=== PATIENT | male | born 1970 | race Two or more races ===

== ENCOUNTER 2018-05-15 07:49 | Day surgery (SDC) | payer OTHER ==
[~2018-05-15] VITALS: Ht 180.3 cm; Wt 119.2 kg
[~2018-05-15 07:49] MED LIST: FURO40 PO; MIRALAX17 GM PO; NADO40 PO; SPIR50 PO
== END 2018-05-15 09:41 | disposition home or self-care (01) ==
LOC: ORSCSDS 07:49
PROVIDERS: Internal Medicine Gastroenterology
PROC: 0DJ08ZZ Inspection of Upper Intestinal Tract, Via Natural or Artificial Opening Endoscopic (ICD-10-PCS; principal; 2018-05-15 09:00)
DX: I85.00 Esophageal varices without bleeding (principal); K25.9 Gastric ulcer, unspecified as acute or chronic, without hemorrhage or perforation; K74.60 Unspecified cirrhosis of liver; K75.81 Nonalcoholic steatohepatitis (NASH); R18.8 Other ascites; E66.01 Morbid (severe) obesity due to excess calories; Z68.36 Body mass index [BMI] 36.0-36.9, adult; Z79.899 Other long term (current) drug therapy
CPT/HCPCS: J0330; J1980; J2405; J7120

== ENCOUNTER 2018-10-23 10:19 | Emergency (ER) | payer OTHER ==
[~2018-10-23] VITALS: Ht 177.8 cm; Wt 120.2 kg
[2018-10-23 11:37] LABS: BASOPHILS ABSOLUTE AUTO 0.11 K/mm3 (0.00-0.23); BASOPHILS PERCENT AUTO 1 % (0-2); EOSINOPHILS ABSOLUTE AUTO 0.37 K/mm3 (0.00-0.68); EOSINOPHILS PERCENT AUTO 2 % (0-6); Hematocrit 32.7 % (37.0-53.0); IMMATURE GRAN PERCENT AUTO 1 % (0-1); LYMPHOCYTES ABSOLUTE AUTO 2.36 K/mm3 (0.84-5.20); LYMPHOCYTES PERCENT AUTO 15 % (21-46); MONOCYTES ABSOLUTE AUTO 0.86 K/mm3 (0.16-1.47); MONOCYTES PERCENT AUTO 6 % (4-13); Mean Corpuscular HGB 32.8 pg (26.0-34.0); Mean Corpuscular HGB Conc 33.6 g/dL (31.5-36.5); Mean Corpuscular Volume 98 fL (80-100); Mean Platelet Volume 10.4 fL (9.1-12.4); NEUTROPHILS ABSOLUTE AUTO 11.79 K/mm3 (1.96-9.15); NEUTROPHILS PERCENT AUTO 76 % (41-73); Platelet Count 121 K/mm3 (150-400); RDW Coefficient Variation 14.9 % (11.7-14.2); Red Blood Cell Count 3.35 M/mm3 (4.30-5.90); White Blood Cell Count 15.59 K/mm3 (4.00-11.30)
[2018-10-23 11:57] LABS: Alanine Aminotransfer (ALT/SGP 52 U/L (12-78); Albumin, Blood 2.8 g/dL (3.4-5.0); Albumin/Globulin Ratio 0.7 (0.8-1.8); Alk Phos 87 U/L (50-136); Anion Gap 8 mmol/L (6-16); Aspartate Aminotrans (AST/SGOT 61 U/L (12-37); Bilirubin, Total 4.1 mg/dL (0.1-1.0); Blood Urea Nitrogen 45 mg/dL (8-24); Bun/Creatinine Ratio 38.8 (12.0-20.0); CO2, Blood 24 mmol/L (21-32); Calcium, Blood 8.5 mg/dL (8.5-10.1); Chloride, Blood 106 mmol/L (98-108); Creatinine, Blood 1.16 mg/dL (0.60-1.20); Globulin, Blood 4.1 g/dL (2.2-4.0); Glomerular Filtration Rate >60 (60-); Glucose, Blood 162 mg/dL (70-99); Potassium, Blood 4.6 mmol/L (3.5-5.5); Sodium, Blood 138 mmol/L (136-145); Total Protein, Blood 6.9 g/dL (6.4-8.2)
[2018-10-23 11:58] LABS: International Normalized Ratio 1.26; Prothrombin Time Results 13.1 Sec (9.7-11.5)
== END 2018-10-23 13:48 | disposition home or self-care (01) ==
LOC: ER 10:19
PROVIDERS: Emergency Medicine; Physician Assistant
DX: K92.2 Gastrointestinal hemorrhage, unspecified (principal); K75.81 Nonalcoholic steatohepatitis (NASH); I83.90 Asymptomatic varicose veins of unspecified lower extremity; Z88.0 Allergy status to penicillin; Z88.1 Allergy status to other antibiotic agents; Z79.899 Other long term (current) drug therapy
CPT/HCPCS: 36415; 80053; 85025; 85610; 86850; 86900; 86901; 93005; 93010

== ENCOUNTER 2018-11-15 01:25 | Inpatient (IN) | payer OTHER ==
[~2018-11-15] VITALS: Ht 177.8 cm; Wt 122.7 kg
[2018-11-15 02:14] LABS: Hemoglobin 7.3 g/dL (13.5-17.5); Mean Corpuscular HGB 30.9 pg (26.0-34.0); Mean Corpuscular HGB Conc 31.7 g/dL (31.5-36.5); Mean Corpuscular Volume 98 fL (80-100); Mean Platelet Volume 9.7 fL (9.1-12.4); NRBC ABSOLUTE 0.03 K/mm3 (0.00-0.02); NRBC Auto 0.1 /100 WBC (0.0-0.2); Platelet Count 267 K/mm3 (150-400); Red Blood Cell Count 2.36 M/mm3 (4.30-5.90); White Blood Cell Count 35.77 K/mm3 (4.00-11.30)
[2018-11-15 02:19] LABS: International Normalized Ratio 2.14; Prothrombin Time Results 21.2 Sec (9.7-11.5)
[2018-11-15 02:25] LABS: Calcium, Ionized (POC) 0.97 mmol/L (1.10-1.46); Chloride (POC) 98 mmol/L (98-108); Creatinine (POC) 1.7 mg/dL (0.8-1.3); Glucose (ISTAT POC) 202 mg/dL (70-99); Hemoglobin (POC) 7.1 g/dL (13.5-17.5); Potassium (POC) 4.2 mmol/L (3.5-5.5); Sodium (POC) 129 mmol/L (135-148); Total CO2 (POC) 16 mmol/L (21-32)
[2018-11-15 02:26] LABS: Albumin, Blood 1.9 g/dL (3.4-5.0); Albumin/Globulin Ratio 0.6 (0.8-1.8); Bilirubin, Total 1.8 mg/dL (0.1-1.0); Bun/Creatinine Ratio 24.2 (12.0-20.0); Calcium, Blood 6.8 mg/dL (8.5-10.1); Creatinine, Blood 1.57 mg/dL (0.60-1.20); Potassium, Blood 4.2 mmol/L (3.5-5.5); Total Protein, Blood 4.9 g/dL (6.4-8.2); Troponin I 0.015 ng/mL (0.000-0.040)
[2018-11-15 02:41] LABS: BAND PERCENT MAN 2 % (0-8); BASOPHILS PERCENT MAN 0 % (0-2); EOSINOPHILS ABSOLUTE MAN 0.35 K/mm3 (0.00-0.68); EOSINOPHILS PERCENT MAN 1 % (0-6); LYMPHOCYTES ABSOLUTE MAN 3.21 K/mm3 (0.84-5.20); LYMPHOCYTES PERCENT MAN 9 % (21-46); METAMYELOCYTE ABSOLUTE MAN 1.07 K/mm3 (0.00-0.00); METAMYELOCYTE PERCENT MAN 3 % (0-0); MONOCYTES ABSOLUTE MAN 2.14 K/mm3 (0.16-1.47); MONOCYTES PERCENT MAN 6 % (4-13); MYELOCYTE ABSOLUTE MAN 0.71 K/mm3 (0.00-0.00); MYELOCYTE PERCENT MAN 2 % (0-0); NEUTROPHILS ABSOLUTE MAN 28.25 K/mm3 (1.96-9.15); SEG NEUTROPHILS PERCENT MAN 77 % (41-73); TOTAL CELLS COUNTED 100
--- NOTE | 2018-11-15 05:13 | NUR ---
ADMIT RECEIVED FROM ER VIA GURNEY. AWAKE AND ALERT. ORIENTED AND COOPERATIVE. PT IS ABLE TO HELP WITH REPOSITIONING. DENIES C/O PAIN AT THIS TIME. C/O GENERAL WEAKNESS AND "JUST NOT FEELING WELL." DENIES NAUSEA. INCONTINENT OF LARGE AMOUNT OF LOOSE DARK MAROON STOOL. ABD SURGICAL WOUND NOTED- OLD DRSG IN PLACE WITH MODERATE AMOUNT OF SEROUS DRAINAGE. PICS TAKEN, WOUND CLEANED, AND REDRESSED. RIJ CENTRAL LINE PATENT. LEVOPHED INFUSING @ 5MCG/MIN UPON ARRIVAL. PRBC INFUSING PER ORDER. MONITOR SHOWS NSR-ST, RATE 90-100s. AFEBRILE. PT IS SLIGHTLY TACHYPNEIC, RATE 24-28. DENIES C/O SOB OR DYSPNEA. RA SATS STABLE. SEE ADMIT ASSESSMENT FOR FULL ASSESSMENT.
[2018-11-15 06:40] LABS: Hematocrit 22.3 % (37.0-53.0); Hemoglobin 7.2 g/dL (13.5-17.5); Mean Corpuscular HGB 31.3 pg (26.0-34.0); Mean Corpuscular HGB Conc 32.3 g/dL (31.5-36.5); Mean Corpuscular Volume 97 fL (80-100); Mean Platelet Volume 9.6 fL (9.1-12.4); Platelet Count 261 K/mm3 (150-400); RDW Coefficient Variation 16.6 % (11.7-14.2); RDW Standard Deviation 57.7 fL (35.1-46.3); White Blood Cell Count 39.86 K/mm3 (4.00-11.30)
[2018-11-15 06:50] LABS: Albumin, Blood 2.2 g/dL (3.4-5.0); Albumin/Globulin Ratio 0.8 (0.8-1.8); Bilirubin, Total 2.3 mg/dL (0.1-1.0); Bun/Creatinine Ratio 25.7 (12.0-20.0); Calcium, Blood 6.4 mg/dL (8.5-10.1); Creatinine, Blood 1.36 mg/dL (0.60-1.20); Globulin, Blood 2.7 g/dL (2.2-4.0); Potassium, Blood 4.5 mmol/L (3.5-5.5); Total Protein, Blood 4.9 g/dL (6.4-8.2)
--- NOTE | 2018-11-15 08:00 | NUR ---
INITIAL ASSESSMENT PATIENT LYING IN BED QUIETLY UPON ENTERING ROOM. MOTHER AT BEDSIDE. PATIENT ALERT AND ORIENTED X 4, AFEBRILE. PATIENT STATES THAT HE HAS INTERMITTENT, SHARP PAIN THAT COMES AND GOES IN R SIDE OF ABDOMEN. PATIENT STATES THAT PAIN IS MANAGEABLE AT THIS TIME. PATIENT HAS GENERALIZED WEAKNESS BUT ABLE TO MOVE ALL EXTREMITIES. PATIENT HELPS TO REPOSITION. PATIENT SATTING WELL ON RA. LUNGS CLEAR IN UPPER LOBES AND DIMINISHED IN LOWER LOBES. PATIENT IN ST, HR IN THE LOW 100S. BP STABLE. LEVOPHED INFUSING AT 3 MCG/ MINUTE AT BEGINNING OF SHIFT. LEVOPHED NOW ON STANDBY. PULSES STRONG. PATIENT HAS GENERAL 1+ EDEMA. ABDOMEN MODERATELY DISTENDED, SOFT, TENDER TO PALPATION, WITH TYMPANIC BS. PATIENT HAS BEEN HAVING LIQUID/ LOOSE, MAROON STOOLS. PATIENT NPO. PATIENT VOIDING SMALL AMOUNTS OF DARK ORANGE URINE INTO BEDSIDE URINAL. PATIENT HAS SCATTERED BRUISES T/O. DRESSING C/D/I TO MIDLINE ABDOMEN- S/P APPENDECTOMY. NS INFUSING AT 125 MLS/ HOUR. BED LOW, CALL LIGHT IN REACH. WILL CONTINUE TO MONITOR PATIENT FREQUENTLY THROUGHOUT SHIFT.
--- NOTE | 2018-11-15 10:34 | NUR ---
DR. DALEY NOTIFIED OF PATIENT'S HEMOGLOBIN OF 7.1. NO ORDERS AT THIS TIME.
[2018-11-15 11:03] LABS: Source, Urine Clean Catch
[2018-11-15 11:12] LABS: Appearance, Urine Clear (Clear); Bilirubin, Urine Neg (Neg); Blood, Urine Neg (Neg); Color, Urine Yellow (P-Yellow); Glucose Qualitative, Urine Neg (Neg); Ketones, Urine 1+ (Neg); Leukocyte Esterase, Urine 1+ (Neg); Nitrite, Urine Neg (Neg); Protein, Urine 1+ (Neg); Urobilinogen, Urine NORM (Normal)
[2018-11-15 11:24] LABS: Adenovirus Not Detected (NOT DETECT); Bordetella pertussis Not Detected (NOT DETECT); Chlamydophila pneumoniae Not Detected (NOT DETECT); Coronavirus 229E Not Detected (NOT DETECT); Coronavirus HKU1 Not Detected (NOT DETECT); Coronavirus NL63 Not Detected (NOT DETECT); Coronavirus OC43 Not Detected (NOT DETECT); Human Metapneumovirus Not Detected (NOT DETECT); Human Rhinovirus/Enterovirus Not Detected (NOT DETECT); Influenza A Not Detected (NOT DETECT); Influenza A/2009-H1 Not Detected (NOT DETECT); Influenza A/H1 Not Detected (NOT DETECT); Influenza A/H3 Not Detected (NOT DETECT); Influenza B Not Detected (NOT DETECT); Mycoplasma pneumoniae Not Detected (NOT DETECT); Parainfluenza Virus 1 Not Detected (NOT DETECT); Parainfluenza Virus 2 Not Detected (NOT DETECT); Parainfluenza Virus 3 Not Detected (NOT DETECT); Parainfluenza Virus 4 Not Detected (NOT DETECT); Respiratory Syncytial Virus Not Detected (NOT DETECT)
[2018-11-15 11:46] LABS: Bacteria Few /hpf; Red Blood Cells, Urine 0-2 /hpf (0-2); Squamous Epithelial Cells Few /hpf (Few)
--- NOTE | 2018-11-15 13:00 | NUR ---
PATIENT RESTING QUIETLY IN BED. NO COMPLAINTS AT THIS TIME. AFEBRILE. PATIENT REMAINS SATTING WELL ON RA. PATIENT IN SR TO ST, HR 90S TO LOW 100S. BP STABLE. PATIENT REMAINS NPO. RECTAL TUBE DRAINING LIQUID, MAROON STOOL. NS TKO. NO OTHER ACUTE CHANGES TO NOTE ON AT THIS TIME. WILL CONITNUE TO MONITOR.
--- NOTE | 2018-11-15 14:23 | NUR ---
Per admit trigger, I met with Tre to discuss AD. He is very weak, but was open for this conversation. I gently explained AD purpose and benefits. He is very interested in completing this document this hospitalization. He would like his mom to be his MPOA. I left the information packet on bedside table at his request. He plans of completing this document with his mom when she arrives this afternoon. Advised I will be available to assist in completion.
--- NOTE | 2018-11-15 16:40 | NUR ---
PATIENT RESTING QUIETLY IN BED. AFEBRILE. NO COMPLAINTS OF PAIN. VSS. MOTHER AT BEDSIDE. NO ACUTE CHANGES TO NOTE ON AT THIS TIME. WILL CONTINUE TO MONITOR.
--- NOTE | 2018-11-15 18:53 | NUR ---
SHIFT SUMMARY PATIENT REMAINED ALERT AND ORIENTED X 4, AFEBRILE. PATIENT HAS GENERALIZED WEAKNESS. PATIENT DID NOT WANT TO MOVE AROUND MUCH IN BED TODAY EVEN WITH ENCOURAGEMENT. PATIENT COMPLAINED OF INTERMITTENT, SHARP PAIN TO RIGHT ABDOMEN. FENTANYL ORDER RECEIVED TODAY. PATIENT GIVEN FENTANYL A COUPLE OF TIMES REQUESTED FOR THE RIGHT ABD PAIN. PATIENT REPORTED RELIEF WITH PRN PAIN MEDICATION. PATIENT REMAINED SATTING WELL ON RA. PATIENT REMAINED IN SR TO ST/ HR 90S TO LOW 100S. BP REMAINED STABLE. LEVOPHED TURNED OFF THIS AM, EARLY IN SHIFT. NO CHANGE TO ABDOMEN. RECTAL TUBE PUT OUT 100 CC LIQUID, MAROON STOOL. PATIENT HAS REMAINED NPO. PATIENT REMAINS VOIDING SMALL AMOUNTS AT A TIME OF DARK ORANGE COLORED URINE. NO CHANGE TO SKIN. NS INFUSING TKO, OCTREOTIDE AT 25 MLS/ HOUR. RESP. PANEL SENT. UA SENT. 2 G CALCIUM GLUCONATE GIVEN THIS AM FOR CALCIUM LEVEL OF 6.4. PATIENT REFUSED BED BATH THIS SHIFT. MOTHER, MARIO, HAS BEEN IN ROOM MOST OF THE DAY. BED LOW, CALL LIGHT IN REACH. PATIENT HAS NO COMPLAINTS AT THIS TIME. REPORT WILL BE GIVEN TO ONCOMING VEIN PUMPER NURSE SHORTLY.
--- NOTE | 2018-11-15 19:15 | NUR ---
ASSUMED CARE ASSUMED CARE OF PATIENT. AWAKE AND ALERT. ORIENTED X 3. PT IS ABLE TO ASSIST WITH REPOSITIONING. MONITOR SHOWS ST, RATE 100-105. BP STABLE. RA SATS 98%. RESPIRATIONS EVEN AND UNLABORED. SHALLOW RESPIRATIONS NOTED. PT ENCOURAGED TO COUGH AND DEEP BREATHE FREQUENTLY. RESPIRATIONS SLIGHTLY TACHYPNEIC AT TIMES. MIDLINE ABD DRSG INTACT WITH SMALL AMOUNT OF SEROUS DRAINAGE. SMALL INCISION NOTED TO RIGHT OF MIDLINE INCISION WITH SUTURE INTACT. DENIES NAUSEA. NPO FOR NOW. RECTAL TUBE IN PLACE WITH LIQUID DARK MAROON STOOL. PT C/O RUQ PAIN WITH MOVEMENT AND DEEP BREATHING. DENIES NEED FOR PAIN MED AT THIS TIME. SANDOSTATIN GTT INFUSING @ 50MCG/HR PER ORDER. NS TKO. VOIDING SMALL AMOUNTS OF DARK ORANGE URINE FREQUENTLY. SEE SHIFT ASSESSMENT FOR FULL ASSESSMENT.
[2018-11-16 05:15] LABS: BASOPHILS ABSOLUTE AUTO 0.14 K/mm3 (0.00-0.23); BASOPHILS PERCENT AUTO 0 % (0-2); EOSINOPHILS ABSOLUTE AUTO 0.36 K/mm3 (0.00-0.68); EOSINOPHILS PERCENT AUTO 1 % (0-6); Hematocrit 21.4 % (37.0-53.0); IMMATURE GRAN ABSOLUTE AUTO 0.97 K/mm3 (0.00-0.10); IMMATURE GRAN PERCENT AUTO 3 % (0-1); LYMPHOCYTES ABSOLUTE AUTO 3.52 K/mm3 (0.84-5.20); LYMPHOCYTES PERCENT AUTO 11 % (21-46); MONOCYTES ABSOLUTE AUTO 2.18 K/mm3 (0.16-1.47); MONOCYTES PERCENT AUTO 7 % (4-13); Mean Corpuscular HGB Conc 32.7 g/dL (31.5-36.5); Mean Corpuscular Volume 98 fL (80-100); Mean Platelet Volume 9.5 fL (9.1-12.4); NEUTROPHILS ABSOLUTE AUTO 24.13 K/mm3 (1.96-9.15); NEUTROPHILS PERCENT AUTO 77 % (41-73); Platelet Count 163 K/mm3 (150-400); RDW Coefficient Variation 17.2 % (11.7-14.2); RDW Standard Deviation 58.8 fL (35.1-46.3); Red Blood Cell Count 2.19 M/mm3 (4.30-5.90)
[2018-11-16 05:35] LABS: Albumin, Blood 2.3 g/dL (3.4-5.0); Albumin/Globulin Ratio 0.8 (0.8-1.8); Bilirubin, Total 2.9 mg/dL (0.1-1.0); Calcium, Blood 7.3 mg/dL (8.5-10.1); Creatinine, Blood 1.4 mg/dL (0.60-1.20); Globulin, Blood 2.9 g/dL (2.2-4.0); Magnesium, Blood 2.3 mg/dL (1.6-2.4); Phosphorus, Blood 2.3 mg/dL (2.5-4.9); Potassium, Blood 4.9 mmol/L (3.5-5.5); Total Protein, Blood 5.2 g/dL (6.4-8.2)
--- NOTE | 2018-11-16 06:10 | NUR ---
SHIFT SUMMARY NO ACUTE CHANGES DURING NOC. SLEPT INTERMITTENTLY. MEDICATED WITH FENTANYL 50MCG IV X 2 DOSES DURING NOC FOR C/O 3-6/10 RUQ PAIN WITH GOOD RELIEF. DENIES C/O NAUSEA. NPO. ABD DRSG D/I. WET TO DRY DRSG CHANGES TO START THIS AM. VSS. MONITOR SHOWS SR-ST, RATE 90-100s. AFEBRILE. REMAINS ON RA- SATS 96-98%. VOIDING SMALL AMOUNTS OF ORANGE URINE. RECTAL TUBE WITH 300CC LIQUID DARK MAROON STOOL. ALSO WITH TWO LARGE LEAKS OF STOOL T/O NOC. WILL REPORT TO DAY SHIFT RN WHEN AVAILABLE.
--- NOTE | 2018-11-16 08:11 | NUR ---
ASSUMED CARE ASSUMED CARE OF PT AT 0700. REPORT RECEIVED FROM CHIP GONSALVES. PT SLEEPING, AROUSES EASILY TO VERBAL STIMULUS, ORIENTED X4 WHEN AWAKE. PT PLEASANT AND COOPERATIVE WITH CARE. PT APPEARS UNCOMFORTABLE, SOMEWHAT TACHYPNEIC, SHALLOW BREATHING NOTED. MONITOR SHOWS SINUS RHYTHM WITH HR 90'S, SBP 90'S, SPO2 95-96% ON ROOM AIR. PT REPORTING RUQ PAIN WITH DEEP BREATHING - MED c FENTANYL PER EMAR. PT INSTRUCTED ON IMPORTANCE OF PAIN MANAGEMENT, DEEP BREATHING, COUGHING, TURNING TO PREVENT PNEUMONIA, VERBALIZES UNDERSTANDING. MIDLINE ABDOMINAL DRESSING TAKEN DOWN - SURGICAL SITE APPEARS BRIGHT PINK WITHE SOME YELLOW, MODERATE AMT OF CLEAR YELLOW LIQUID DRAINAGE ON PREVIOUS DRESSING. SWAB OBTAINED AND SENT FOR CULTURE. WET TO DRY DRESSING PLACED PER PT, PREVIOUS WOUND CARE ORDERS. ABDOMEN MODERATELY DISTENDED, BOWEL TONES HYPOACTIVE T/O. PT HAS RECTAL TUBE IN PLACE DRAINING MAROON LIQUID STOOL TO GRAVITY. PT VOIDING DARK YELLOW/JUDY URINE PER URINAL. PT HAS 20G IV TO RFA, SALINE LOCKED. CL IN PLACE TO RIJ WITH NS TKO, SANDOSTATIN 25ML/HR, AND ABX. PT USING CALL LIGHT APPROPRIATELY FOR NEEDS. WILL CONTINUE TO MONITOR PT CLOSELY.
--- NOTE | 2018-11-16 09:26 | NUR ---
DR. DAV DEMARCO ROUNDED ON PT. PLAN TO MONITOR SERIAL H&H'S. OTHERWISE CONTINUE WITH CURRENT PLAN OF CARE. DISCUSSED PLAN WITH PT AND PT'S MOTHER AT BEDSIDE.
--- NOTE | 2018-11-16 10:07 | NUR ---
DR. EDI DALEY ROUNDED ON PT. PLAN TO ADVANCE DIET TOLERATED, STARTING WITH CLEAR LIQUIDS. CONTINUE SANDOSTATIN GTT OVER THE NEXT 24 HOURS. PLAN TO INCREASE PT ACTIVITY TOLERATED. CONTINUE TO MONITOR LABS. DISCUSSED PLAN OF CARE WITH PT AND PT'S MOTHER AT BEDSIDE.
--- NOTE | 2018-11-16 11:57 | NUR ---
RE-ASSESSMENT PT RESTING IN BED AT THIS TIME. CONTINUES TO COMPLAIN OF RUQ PAIN, ESPECIALLY WITH DEEP INSPIRATION. MED PER EMAR WITH GOOD RELIEF OF PAIN. VITALS CONTINUE TO BE STABLE, SBP IMPROVED SINCE THIS MORNING. RECTAL TUBE HAS HAD MINIMAL OUTPUT THIS MORNING. MIDLINE WET TO DRY DRESSING INTACT WITHOUT SIGNIFICANT DRAINAGE AT THIS TIME. PT TOLERATING CLEAR LIQUIDS WITHOUT NAUSEA, VOMITING. CONTINUES TO VOID DARK YELLOW/JUDY TO URINAL. PT SHIFTING POSITION INDEPENDENTLY AT THIS TIME. PT'S MOTHER AT BEDSIDE ASSISTING WITH CARE. PT USING CALL LIGHT FOR NEEDS. WILL CONTINUE TO MONITOR.
[2018-11-16 15:21] LABS: Hematocrit 20.9 % (37.0-53.0); Hemoglobin 6.8 g/dL (13.5-17.5)
--- NOTE | 2018-11-16 17:56 | NUR ---
SHIFT SUMMARY PT RECEIVING 1 UNIT PRBC AT THIS TIME FOR HGB 6.8. VITALS HAVE BEEN STABLE T/O SHIFT WITH NO S/SX OF ACTIVE BLEEDING. RECTAL TUBE WITH SCANT AMT DARK BROWN/MAROON LIQUID OUTPUT. NO N/V THIS SHIFT, PT TOLERATING FULL LIQUID DIET WELL AT THIS TIME. SANDOSTATIN GTT CONTINUES PER ORDERS. ABDOMINAL WET TO DRY DRESSING REMAINS INTACT. PT TURNING SELF IN BED WITH ENCOURAGEMENT. PT'S MOTHER AT BEDSIDE T/O SHIFT ASSISTING WITH CARE. WILL CONTINUE TO MONITOR PT AND GIVE HANDOFF REPORT TO ONCOMING RN WHEN AVAILABLE.
--- NOTE | 2018-11-16 21:19 | NUR ---
ASSUMING CARE RECEIVED PT REPORT FROM CHIP BENÍTEZ. PT IS ALERT AND ORIENTED AT THE TIME OF SHIFT REPORT. PT IS ADMITTED DUE TO SHOCK POST APPENDECTOMY PROCEDURE. PT IS ON ROOM AIR WITH SPO2 IN THE MID TO HIGH 90'S. PT HR IS IN THE 90-100 RANGE AND APPEARS SINUS. PT BP IS IN THE 90'S TO LOW 100'S. PT IS REPORTING SOME RIGHT UPPER QUADRANT ABDOMINAL PAIN. PT REPORTS THAT IT IS INCREASED WITH DEEP INSPIRATION. PT DENIES NEED FOR PAIN MEDICATIONS AT THIS TIME. PT HAS MID LINE ABDOMINAL INSCISION WITH DRESSING IN PLACE. DRESSING CHANGE PERFORMED AT THE TIME OF SHIFT ASSESSMENT. PT HAS WET TO DRY GAUZE AND ABD PAD IN PLACE, SOME SEROUS DRAINAGE NOTED FROM SITE. PT DENIES ANY PAIN OF SURGICAL SITE. PT IS ABLE TO REPOSITION SELF WITH ENCOURAGEMENT. PT HAS RECETAL TUBE IN [place]. RECTAL TUBE DRAINAGE APPEARS TO BE DARK BLACKISH BROWN AT THIS TIME. MINIMAL OUTPUT NOTED AT THIS TIME. PT IS RECEIVING SANDOSTATIN AT 25ML/HR AND NS AT TKO. PT IS RECEIVING SODIUM PHOS AT THE TIME OF SHIFT REPORT THAT COMPLETED SHORTLY AFTER CHANGE OF SHIFT. ASSUMING CARE OF PT AT THE TIME OF SHIFT REPORT. WILL CONTINUE TO MONITOR PT.
[2018-11-17 03:40] LABS: BASOPHILS PERCENT AUTO 0 % (0-2); EOSINOPHILS ABSOLUTE AUTO 0.44 K/mm3 (0.00-0.68); EOSINOPHILS PERCENT AUTO 2 % (0-6); Hematocrit 22.5 % (37.0-53.0); Hemoglobin 7.3 g/dL (13.5-17.5); IMMATURE GRAN ABSOLUTE AUTO 0.91 K/mm3 (0.00-0.10); IMMATURE GRAN PERCENT AUTO 4 % (0-1); LYMPHOCYTES PERCENT AUTO 8 % (21-46); MONOCYTES ABSOLUTE AUTO 1.71 K/mm3 (0.16-1.47); MONOCYTES PERCENT AUTO 7 % (4-13); Mean Corpuscular HGB 31.9 pg (26.0-34.0); Mean Corpuscular HGB Conc 32.4 g/dL (31.5-36.5); Mean Corpuscular Volume 98 fL (80-100); Mean Platelet Volume 9.4 fL (9.1-12.4); NEUTROPHILS ABSOLUTE AUTO 19.77 K/mm3 (1.96-9.15); NEUTROPHILS PERCENT AUTO 80 % (41-73); Platelet Count 126 K/mm3 (150-400); RDW Coefficient Variation 17.8 % (11.7-14.2); RDW Standard Deviation 58.9 fL (35.1-46.3); Red Blood Cell Count 2.29 M/mm3 (4.30-5.90); White Blood Cell Count 24.83 K/mm3 (4.00-11.30)
[2018-11-17 03:58] LABS: Alanine Aminotransfer (ALT/SGP 30 U/L (12-78); Albumin, Blood 2.2 g/dL (3.4-5.0); Albumin/Globulin Ratio 0.7 (0.8-1.8); Alk Phos 56 U/L (50-136); Anion Gap 9 mmol/L (6-16); Aspartate Aminotrans (AST/SGOT 47 U/L (12-37); Bilirubin, Total 3.5 mg/dL (0.1-1.0); Blood Urea Nitrogen 42 mg/dL (8-24); Bun/Creatinine Ratio 33.9 (12.0-20.0); CO2, Blood 19 mmol/L (21-32); Chloride, Blood 107 mmol/L (98-108); Creatinine, Blood 1.24 mg/dL (0.60-1.20); Glomerular Filtration Rate >60 (60-); Glucose, Blood 179 mg/dL (70-99); Magnesium, Blood 2.2 mg/dL (1.6-2.4); Phosphorus, Blood 2.5 mg/dL (2.5-4.9); Potassium, Blood 4.4 mmol/L (3.5-5.5); Sodium, Blood 135 mmol/L (136-145); Total Protein, Blood 5.2 g/dL (6.4-8.2)
--- NOTE | 2018-11-17 05:41 | NUR ---
SHIFT SUMMARY NOTE PT AHS REMAINED ALERT AND ORIENTED THROUGH THE NIGHT WHILE AWAKE. PT HAS SLEPT THROUGH MOST OF THE NIGHT. PT HAS BEEN ABLE TO USE CALL LIGHT APPROPRIATELY AND IS ABLE TO MAKE NEEDS KNOWN. PT WAS ENCOURAGED TO TURN SELF THROUGH THE NIGHT AND WAS ASSISTED WITH PILLOWS. PT ABLE TODO MOST OF THE WORK OF TURNING. PT CONTINUES TO HAVE OCTREOTIDE GTT AT 25ML/HR AND NS AT TKO. PT CONTINUES TO HAVE [facility]. DRESSING HAS SOME CLEAR SEROUS DRAINAGE NOTED BUT IS OTHERWISE INTACT. PT CONTIUES TO HAVE RECTAL TUBE IN PLACE. PT HAD APPROX 200ML OF LIQUID STOOL OUTPUT. PT STOOL IS DARK BROWN/MAROON COLORED. PT HAS USED THE URINAL THROUGH THE NIGHT WITHOUT ASSISTANCE. PT HAS HAD FREQUENT SMALL VOIDS. PT URINE IS DARK JUYD IN COLOR. PT HR AND BP HAVE REMAINED STABLE THROUGH THE NIGHT. WILL REPORT OFF TO ONCOMING DAY SHIFT NURSE.
--- NOTE | 2018-11-17 08:00 | NUR ---
ASSUMED CARE ASSUMED CARE OF PT AT 0700. REPORT RECEIVED FROM CHIP JEAN-BAPTISTE. PT SLEEPING, AROUSES EASILY TO VERBAL, ORIENTED, PLEASANT AND COOPERATIVE WITH CARE WHEN AWAKE. MONITOR SHOWS SINUS RHYTHM/SINUS TACH WITH HR 90-100, BP STABLE, SPO2 >94% ON ROOM AIR. PT DENIES NAUSEA, VOMITING, HEADACHE, DYSPNEA. PT HAS RECTAL TUBE IN PLACE DRAINING DARK GREEN LIQUID STOOL TO GRAVITY. PT CONTINUES TO COMPLAIN OF RUQ PAIN - MED c FENTANYL PER EMAR WITH GOOD RELIEF OF PAIN. MIDLINE ABDOMINAL DRESSING CHANGED - PREVIOUS DRESSING SATURATED WITH SEROSANGUINOUS DRAINAGE. CL CONTINUES TO RIJ WITH SANDOSTATIN GTT AND NS TKO c ABX. CONTINUE TO ENCOURAGE ACTIVITY TOLERATED, DEEP BREATHING AND COUGHING.
--- NOTE | 2018-11-17 09:00 | NUR ---
DR. DAV DEMARCO ROUNDED ON PT. PLANS TO CONTINUE SANDOSTATIN GTT FOR AN ADDITIONAL 24 HRS, CONTINUE TO MONITOR PT IN ICU. PT COMPLAINING OF COUGH AND SORE THROAT - ORDER RECEIVED FOR CEPACOL LOZENGES.
--- NOTE | 2018-11-17 10:51 | NUR ---
DR. EDI BARBER ROUNDED ON PT. CONCERNED WITH HOW TIRED PT IS, COMPLAINING OF COUGH AND SORE THROAT - PLANS TO REPEAT FLU SWAB. OTHERWISE CONTINUE WITH PLAN OF CARE, AGREES WITH TRANSFER TO PCU STATUS.
[2018-11-17 11:49] LABS: Influenza A Positive (NEGATIVE); Influenza B Negative (NEGATIVE)
--- NOTE | 2018-11-17 12:41 | NUR ---
FLU/PCU TRANSFER FLU SWAB CAME BACK POSITIVE. ISOLATION INITIATED. REPORT GIVEN TO PERSONAL INSURANCE ADVISOR TO ASSUME CARE OF PT.
--- NOTE | 2018-11-17 18:03 | NUR ---
SHIFT SUMMARY PT ARRIVED FROM ICU AROUND 1300. MOM AT BEDSIDE. DENIED PAIN. DRESSING SATURATED, SO NEW DRESSING APPLIED. RECTAL TUBE PATENT AND DRAINING. R IJ OCTREOTIDE DRIP RUNNING. DECLINED TO GET UP AFTER ARRIVING ON OUR FLOOR. USES URINAL IN BED. GOOD APPETTITE. WCTM
[2018-11-18 05:32] LABS: BASOPHILS ABSOLUTE AUTO 0.04 K/mm3 (0.00-0.23); BASOPHILS PERCENT AUTO 0 % (0-2); EOSINOPHILS ABSOLUTE AUTO 0.17 K/mm3 (0.00-0.68); EOSINOPHILS PERCENT AUTO 2 % (0-6); Hematocrit 19.4 % (37.0-53.0); Hemoglobin 6.2 g/dL (13.5-17.5); IMMATURE GRAN ABSOLUTE AUTO 0.35 K/mm3 (0.00-0.10); IMMATURE GRAN PERCENT AUTO 3 % (0-1); LYMPHOCYTES PERCENT AUTO 11 % (21-46); MONOCYTES ABSOLUTE AUTO 1.48 K/mm3 (0.16-1.47); MONOCYTES PERCENT AUTO 14 % (4-13); Mean Corpuscular Volume 100 fL (80-100); Mean Platelet Volume 10.3 fL (9.1-12.4); NEUTROPHILS ABSOLUTE AUTO 7.54 K/mm3 (1.96-9.15); NEUTROPHILS PERCENT AUTO 70 % (41-73); NRBC ABSOLUTE 0.02 K/mm3 (0.00-0.02); NRBC Auto 0.2 /100 WBC (0.0-0.2); Platelet Count 73 K/mm3 (150-400); RDW Coefficient Variation 18.1 % (11.7-14.2); RDW Standard Deviation 60.8 fL (35.1-46.3); Red Blood Cell Count 1.94 M/mm3 (4.30-5.90); White Blood Cell Count 10.78 K/mm3 (4.00-11.30)
[2018-11-18 05:48] LABS: Alanine Aminotransfer (ALT/SGP 30 U/L (12-78); Albumin, Blood 1.9 g/dL (3.4-5.0); Albumin/Globulin Ratio 0.6 (0.8-1.8); Alk Phos 53 U/L (50-136); Anion Gap 5 mmol/L (6-16); Aspartate Aminotrans (AST/SGOT 58 U/L (12-37); Bilirubin, Total 1.9 mg/dL (0.1-1.0); Blood Urea Nitrogen 30 mg/dL (8-24); CO2, Blood 20 mmol/L (21-32); Calcium, Blood 6.5 mg/dL (8.5-10.1); Chloride, Blood 109 mmol/L (98-108); Creatinine, Blood 1.07 mg/dL (0.60-1.20); Globulin, Blood 3.1 g/dL (2.2-4.0); Glomerular Filtration Rate >60 (60-); Glucose, Blood 162 mg/dL (70-99); Potassium, Blood 4.2 mmol/L (3.5-5.5); Sodium, Blood 134 mmol/L (136-145)
--- NOTE | 2018-11-18 06:11 | NUR ---
PT HAD NO ACUTE CHANGES T/O NIGHT; VSS. SATS >90% ON RA, LUNGS DIM, COUGH MORE PROD THIS AM. SURG DRESSING CHANGED X1 R/T SATURATION, INCISION WNL, SITE DRAINING CLEAR SEROUS FLUID. PT DENIED PAIN/N/V, IS [place] REG PO. RECTAL TUBE DRAINING GREEN LIQ STOOL, PT VOIDING URINE W/O DIFFICULTY. OCTREOTIDE GTT CONT PER ORDERS. PT ASSISTING W/REPOSITIONING IN BED, IS USING CALL LIGHT FOR ASSISTANCE, WILL CONT TO MONITOR UNTIL REP GIVEN TO ONCOMING RN.
--- NOTE | 2018-11-18 06:26 | NUR ---
H&H: PT AM LABS REVIEWED SHOWING DROP IN H&H DOWN FROM 7.3/22.5 TO 6.2/19.4. CALL PLACED TO HOSPITALIST, NEW ORDER TO TRANSFUSE 1 UNIT PRBC. SANITATION TANK WASHER NOTIFIED.
--- NOTE | 2018-11-18 14:26 | NUR ---
NOTE PT RESTING QUIETLY. SR. VSS. PT TOLERATED PRBC X1 WITH NO DIFFICULTIES. LUNSG DECREASED T/O. NO COUGH. ENCOURAGED TO COUGH AND DEEP BREATH. AP REG/REG WITH MURMUR. BP STABLE. PT ABD SOFT, ROUND POSITIVE FLUID WAVE. NO DRAINAGE FROM MIDLINE YET. PT HAS REFUSED TO HAVE DRESSING CHANGED UNTIL IT LEAKS THROUGH. PT DENIED PAIN OR ABD DISCOMFORT. TALKED ABOUT INCREASING PROTEIN INTAKE FOR WOUND HEALING AND SERUM ALBUMIN. PT HAS REFUSED TO TURN FOR SKIN PROTECTION. HE IS COMFORTABLE STAYING ON HIS RIGHT SIDE. RIGHT IJ C/L PATENT. DR DALEY WANTS THE C/L OUT. TALKED WITH ICU TO ARRANGE A POWER GLIDE PLACEMENT FOR ANTIBIOTIC TREATMENT. VOIDING PER URINAL. URINE IS DARK ORANGISH IN COLOR. CONTINUE POT.
--- NOTE | 2018-11-18 18:14 | NUR ---
EVENING NOTE RESTING QUIETLY. PT FINALLY AGREED TO TURN ONTO HIS LEFT SIDE. VSS. SR ON MONITOR. MOTHER AT BEDSIDE. PT REFUSED DINNER BECAUSE HE WANTS TO SLEEP. PT HAS DECLINED NEED FOR PAIN MEDICATIONS TODAY. ABD DRESSING CD&I. PT REFUSED DRESSING CHANGES TODAY. ORDERED BID. HE STATED STAFF CAN CHANGE IT WHEN IT'S WET. PEEKED UNDER THE EDGE. WOUND LOOKS CLEAN AND DRY. LAP SITES CHEPE. EDGES WELL APPROXIMATED. PT REFUSED TO HAVE RECTAL TUBE OUT OR GET OOB BECAUSE HE SAYS HE'S TOO WEAK RIGHT NOW. OFFERED TO HELP PT GET OOB TO CHAIR. YESTERDAY HE TRIED TO STAND WITH PHYSICAL THERAPY AND HE ALMOST PASSED OUT. PT CONCERNED ABOUT THAT HAPPENING AGAIN. RIGHT NECK C/L SITE CD&I. NO SWELLING OR DRAINAGE NOTED. VSS. CONTINUE POT.
--- NOTE | 2018-11-19 05:06 | NUR ---
PROVIDER CONTACTED NO ORDER NOTED FOR VTE PROPHYLAXIS. DR GRIFFIN CONTACTED AND ORDERS RECEIVED FOR SCD'S TO BLE'S.
--- NOTE | 2018-11-19 05:52 | NUR ---
SHIFT SUMMARY- PT HAS REMAINED AOX4 THROUGHOUT SHIFT. VSS. PLEASANT AND COOPERATIVE WITH CARE. ABDOMINAL DRESSING CHANGED TWO TIMES THROUGHOUT THE NIGHT DUE TO SATURATION WITH CLEAR DRAINAGE. PT REFUSING BED CHANGE WHEN OFFERED, BUT DID ALLOW CHANGE OF GOWN. PT NOT WANTING TO TURN- EDUCATED ON PRESSURE ULCER PREVENTION AND SKIN INTEGRITY. SCD'S IN PLACE TO BLE'S FOR VTE PROPHYLAXIS AND PT TOLERATING WELL. CENTRAL LINE SITE TO R NECK HAS CLEAR TEGADERM WITH SCANT AMOUNT RED DRAINAGE NOTED- NO BRUISING OR SWELLING- PT DENIES PAIN TO SITE. RECTAL TUBE REMAINS IN PLACE AND CONTINUES TO DRAIN GREEN, LIQUID STOOL TO GRAVITY. PT HAS DENIED PAIN THROUGHOUT THE NIGHT. NO OTHER CHANGES NOTED FROM INITIAL ASSESSMENT. WILL CONTINUE TO MONITOR AND REPORT TO ONCOMING RN. BED IN LOW POSITION, CALL LIGHT IN REACH.
[2018-11-19 08:57] LABS: BASOPHILS ABSOLUTE AUTO 0.05 K/mm3 (0.00-0.23); BASOPHILS PERCENT AUTO 0 % (0-2); EOSINOPHILS PERCENT AUTO 3 % (0-6); Hematocrit 22.9 % (37.0-53.0); Hemoglobin 7.3 g/dL (13.5-17.5); IMMATURE GRAN PERCENT AUTO 2 % (0-1); LYMPHOCYTES ABSOLUTE AUTO 1.44 K/mm3 (0.84-5.20); LYMPHOCYTES PERCENT AUTO 13 % (21-46); MONOCYTES ABSOLUTE AUTO 1.44 K/mm3 (0.16-1.47); MONOCYTES PERCENT AUTO 13 % (4-13); Mean Corpuscular HGB 32.3 pg (26.0-34.0); Mean Corpuscular HGB Conc 31.9 g/dL (31.5-36.5); Mean Corpuscular Volume 101 fL (80-100); Mean Platelet Volume 10.5 fL (9.1-12.4); NEUTROPHILS PERCENT AUTO 70 % (41-73); Platelet Count 67 K/mm3 (150-400); RDW Coefficient Variation 18.2 % (11.7-14.2); RDW Standard Deviation 60.9 fL (35.1-46.3); Red Blood Cell Count 2.26 M/mm3 (4.30-5.90); White Blood Cell Count 11.23 K/mm3 (4.00-11.30)
--- NOTE | 2018-11-19 17:23 | NUR ---
SHIFT SUMMARY PT RESTING IN BED THROUGHOUT THE DAY. VSS. ALERT AND ORIENTED X3. PT C/O PAIN WITH RECTAL TUBE IN, RECTAL TUBE NOT PRODUCING MUCH. PT AGREEABLE FOR RECTAL TUBE REMOVAL. RECTAL TUBE REMOVED, PT TOLERATED WELL. PT INCONTINENT OF STOOL THIS AM, THEN UP TO BATHROOM WITH OT. LUNG SOUNDS CLEAR, DIMINISHED BASES. NSR RATE 90s ON TELE. SCDs IN PLACE. LEFT POWERGLIDE FLUSHING WELL. FAMILY AT BEDSIDE THIS AFTERNOON. WILL CONTINUE TO MONITOR.
--- NOTE | 2018-11-20 | NUR ---
POWERGLIDE REMOVAL- SWELLING NOTED TO LEFT UPPER ARM ABOVE POWERGLIDE. NO REDNESS OR WARMTH TO SITE, PT DENIES PAIN BUT REPORTS THAT HIS ARM "FEELS TIGHT IN THAT AREA". POWERGLIDE ASSESSED BY CHIP STALLWORTH AND SUGGESTION MADE FOR SITE ROTATION FOR SAFETY. SECONDARY SITE TO BE OBTAINED. WILL CONTINUE TO MONITOR FOR CHANGES.
[2018-11-20 06:13] LABS: Hematocrit 22.8 % (37.0-53.0); Hemoglobin 7.3 g/dL (13.5-17.5); Mean Corpuscular HGB 32.6 pg (26.0-34.0); Mean Corpuscular Volume 102 fL (80-100); Mean Platelet Volume 10.1 fL (9.1-12.4); Platelet Count 63 K/mm3 (150-400); RDW Coefficient Variation 18.3 % (11.7-14.2); RDW Standard Deviation 64.4 fL (35.1-46.3); Red Blood Cell Count 2.24 M/mm3 (4.30-5.90); White Blood Cell Count 10.17 K/mm3 (4.00-11.30)
[2018-11-20 06:26] LABS: Anion Gap 6 mmol/L (6-16); Blood Urea Nitrogen 26 mg/dL (8-24); Bun/Creatinine Ratio 21.8 (12.0-20.0); CO2, Blood 18 mmol/L (21-32); Calcium, Blood 6.8 mg/dL (8.5-10.1); Chloride, Blood 109 mmol/L (98-108); Creatinine, Blood 1.19 mg/dL (0.60-1.20); Glomerular Filtration Rate >60 (60-); Glucose, Blood 161 mg/dL (70-99); Phosphorus, Blood 1.3 mg/dL (2.5-4.9); Potassium, Blood 3.9 mmol/L (3.5-5.5); Sodium, Blood 133 mmol/L (136-145)
--- NOTE | 2018-11-20 06:26 | NUR ---
SHIFT SUMMARY- PT HAS REMAINED AOX4 THROUGHOUT SHIFT. VSS. PLEASANT AND COOPERATIVE WITH CARE. PT CONTINUES TO AMBULATE WITH STANDBY ASSIST AND FWW TO BEDSIDE COMMODE WITHOUT DIFFICULTY. PT HAS RESTED WELL THROUGHOUT THE NIGHT AND HAS DENIED PAIN. NEW POWERGLIDE PLACED TO R UPPER ARM DUE TO SWELLING AT LOCATION OF LONNIE POWERGLIDE. ABDOMINAL DRESSING TO MIDLINE INCISION CHANGED ONCE AND BLUE SIDE ABDOMINAL DRESSING CHANGED TWICE- PT REPORTS BETTER ABSORBANCY WITH BLUE PAD DRESSING. NO OTHER CHANGES FROM INTIAL ASSESSMENT. WILL CONTINUE TO MONITOR AND REPORT TO ONCOMING SHIFT RN. BED IN LOW POSITION, CALL LIGHT IN REACH.
--- NOTE | 2018-11-20 08:40 | NUR ---
UPDATE: Mid-Abd wound dressing changed. Cleaned with skintegrety, wet to dry eri placed with ABD eri placed over top. L abd drain site with suture in place. Leaking large quantities of serous fluid. Max absorbe pad placed over top. Pt denies needs at this time. Call light in reach.
--- NOTE | 2018-11-20 18:13 | NUR ---
SHIFT SUMMARY PT RESTING IN BED. VSS. ALERT AND ORIENTED X3. LUNG SOUNDS CLEAR, NSR RATE 70s PER TELE. DENIES PAIN THROUGHOUT THE DAY. MIDLINE ABDOMINAL INCISION WET TO DRY DRSG CHANGED THIS AM. LEFT LOWER ABDOMINAL LAPRASCOPIC SITE CONTINUES TO DRAIN SEROUS FLUID, DRSG CHANGED MULTIPLE TIMES PER DAY. DRSG NOTED TO BE SATURATED AFTER PT HAS BEEN UP TO BATHROOM AND / OR AMBULATING IN ROOM. FAMILY AT BEDSIDE THIS AFTERNOON. RIGHT POWERGLIDE FLUSHED WITH 10 ML NS, FLUSHES WELL. WILL CONTINUE TO MONITOR.
[2018-11-21 04:11] LABS: BASOPHILS ABSOLUTE AUTO 0.04 K/mm3 (0.00-0.23); BASOPHILS PERCENT AUTO 0 % (0-2); EOSINOPHILS ABSOLUTE AUTO 0.46 K/mm3 (0.00-0.68); EOSINOPHILS PERCENT AUTO 5 % (0-6); Hematocrit 22.7 % (37.0-53.0); Hemoglobin 7.1 g/dL (13.5-17.5); IMMATURE GRAN ABSOLUTE AUTO 0.15 K/mm3 (0.00-0.10); IMMATURE GRAN PERCENT AUTO 2 % (0-1); LYMPHOCYTES ABSOLUTE AUTO 1.47 K/mm3 (0.84-5.20); LYMPHOCYTES PERCENT AUTO 15 % (21-46); MONOCYTES ABSOLUTE AUTO 0.99 K/mm3 (0.16-1.47); MONOCYTES PERCENT AUTO 10 % (4-13); Mean Corpuscular HGB Conc 31.3 g/dL (31.5-36.5); Mean Platelet Volume 10.6 fL (9.1-12.4); NEUTROPHILS ABSOLUTE AUTO 6.98 K/mm3 (1.96-9.15); NEUTROPHILS PERCENT AUTO 69 % (41-73); Platelet Count 65 K/mm3 (150-400); RDW Coefficient Variation 18.4 % (11.7-14.2); RDW Standard Deviation 63.1 fL (35.1-46.3); Red Blood Cell Count 2.29 M/mm3 (4.30-5.90); White Blood Cell Count 10.09 K/mm3 (4.00-11.30)
[2018-11-21 04:25] LABS: International Normalized Ratio 1.71; Prothrombin Time Results 17.3 Sec (9.7-11.5)
[2018-11-21 04:28] LABS: Alanine Aminotransfer (ALT/SGP 26 U/L (12-78); Albumin, Blood 2.1 g/dL (3.4-5.0); Albumin/Globulin Ratio 0.6 (0.8-1.8); Alk Phos 91 U/L (50-136); Anion Gap 6 mmol/L (6-16); Aspartate Aminotrans (AST/SGOT 40 U/L (12-37); Bilirubin, Total 1.8 mg/dL (0.1-1.0); Blood Urea Nitrogen 24 mg/dL (8-24); Bun/Creatinine Ratio 18.9 (12.0-20.0); CO2, Blood 18 mmol/L (21-32); Calcium, Blood 6.9 mg/dL (8.5-10.1); Chloride, Blood 112 mmol/L (98-108); Creatinine, Blood 1.27 mg/dL (0.60-1.20); Globulin, Blood 3.6 g/dL (2.2-4.0); Glomerular Filtration Rate >60 (60-); Glucose, Blood 144 mg/dL (70-99); Sodium, Blood 136 mmol/L (136-145); Total Protein, Blood 5.7 g/dL (6.4-8.2)
[2018-11-21 04:31] LABS: Mean Corpuscular Volume 99 fL (80-100)
--- NOTE | 2018-11-21 06:22 | NUR ---
SHIFT SUMMARY- PT HAS REMAINED AOX4 THROUGHOUT SHIFT. VSS. PLEASANT AND COOPERATIVE WITH CARE. PT CONTINUES TO AMBULATE TO BATHROOM WITH STANDBY ASSIST AND FWW WITHOUT DIFFICULTY. SURGICAL PUNCTURE TO LLQ CONTINUES TO DRAIN CLEAR FLUID FROM ABDOMEN, DRESSING CHANGED MULTIPLE TIMES WHEN SATURATED. SURGICAL DRESSING CHANGED PER ORDERS. PT HAS DENIED PAIN THROUGHOUT SHIFT. NO OTHER CHANGES FROM INITIAL ASSESSMENT. WILL CONTINUE TO MONITOR AND REPORT TO ONCOMING SHIFT RN. BED IN LOW POSITION, CALL LIGHT IN REACH.
--- NOTE | 2018-11-21 08:40 | NUR ---
AM ASSESMENT: Pt resting in bed at this time. LS clear. HR reg. BT positive. Pt Denies pain. Pulses palp. VSS. Pt has midline wound with wet to dry dressing. Dressing chagned, wound cleaned with skintegrety then sterile water wet to dry dressing placed. 2 sutures to R abd where drain was are clean and intact. No S/S of infection noted. L abd drain site with suture intact. This sight is draining very large quantities of serous drainage likely from ascities. 2 maxabsorb dressing placed over site to absorb drainage. Pt denies other needs. Call light in reach. Will continue to monitor.
--- NOTE | 2018-11-21 10:47 | NUR ---
update: 2nd dressing change done to L abd drain sight that is draining very large quantities of serous drainage. Pt denies other needs and is stable at this time. Call light in reach.
--- NOTE | 2018-11-21 18:36 | NUR ---
SHIFT SUMMARY; Pt resting in room at this time. Pt has done well this shift. VSS throughout shift. Pt L abd drain site still draining coupious amounts os serous drainage. Dressings on this site were changed 3 times with 2 superabsorbent 5x9 pads over top of alginate wound maxorb. This tends to drain more when pt is moving around, leaning forward or sitting up. It appears to be primarily acsities fluid. Pt has denied pain today. Was able to tolerate working with OT and was able to get up to bathroom for shower. No other changes this shift. Pt stable at end of shift. Will report to night RN.
--- NOTE | 2018-11-21 19:45 | NUR ---
ASSUMED CARE PT RESTING IN ROOM COMFORTABLY. PER DAY SHIFT PT HAD NO ACUTE CHANGES IN STATUS TODAY. DENIES ANY PAIN. PT DRAINAGE SITE TO L ABD FROM ASCITES CONTINUES TO DRAIN CLEAR ABD FLUID. PER DAY SHIFT RN DRESSING WAS CHANGED 3 TIMES TODAY AND DRESSING WAS SATURATED. AFTER CONSULTING W/ TRUCK JUMPER THE DECISION WAS MADE TO TRY PLACING A UROSTOMY BAG AROUND THE SITE TO CATCH THE DRAINING FLUID TO HELP PREVENT FURTHER SKIN IRRITATION AND REDUCE THE MOISTURE THE SKIN IS EXPOSED TO. RESP IS EVEN UNLABORED ON RA. SATS >95%. DENIES PAIN, DENIES SOB. CALL LIGHT IS IN REACH. PT CALLS APPROPRIATELY.
--- NOTE | 2018-11-21 20:45 | NUR ---
SKIN CARE UPDATE UROSTOMY BAG PLACED OVER ASCITIES DRAINAGE SITE ON L ABD FOR IMRPOVED SKIN INTEGRITY AND PT MOBILITY. PT TOLERATED WELL, SITE WNL AND SECURED.
[2018-11-22 03:39] LABS: BASOPHILS ABSOLUTE AUTO 0.04 K/mm3 (0.00-0.23); BASOPHILS PERCENT AUTO 0 % (0-2); EOSINOPHILS ABSOLUTE AUTO 0.38 K/mm3 (0.00-0.68); EOSINOPHILS PERCENT AUTO 4 % (0-6); Hematocrit 22.6 % (37.0-53.0); Hemoglobin 7.1 g/dL (13.5-17.5); IMMATURE GRAN ABSOLUTE AUTO 0.08 K/mm3 (0.00-0.10); IMMATURE GRAN PERCENT AUTO 1 % (0-1); LYMPHOCYTES ABSOLUTE AUTO 1.45 K/mm3 (0.84-5.20); LYMPHOCYTES PERCENT AUTO 16 % (21-46); MONOCYTES PERCENT AUTO 10 % (4-13); Mean Corpuscular HGB Conc 31.4 g/dL (31.5-36.5); Mean Platelet Volume 10.4 fL (9.1-12.4); NEUTROPHILS PERCENT AUTO 68 % (41-73); Platelet Count 67 K/mm3 (150-400); RDW Coefficient Variation 18.5 % (11.7-14.2); RDW Standard Deviation 66.6 fL (35.1-46.3); Red Blood Cell Count 2.22 M/mm3 (4.30-5.90); White Blood Cell Count 8.95 K/mm3 (4.00-11.30)
[2018-11-22 03:47] LABS: Mean Corpuscular Volume 102 fL (80-100)
[2018-11-22 03:58] LABS: Bun/Creatinine Ratio 19.1 (12.0-20.0); Creatinine, Blood 1.36 mg/dL (0.60-1.20); Potassium, Blood 3.9 mmol/L (3.5-5.5)
[2018-11-22 04:15] LABS: Percent Saturation 18.5 % (20.0-50.0)
--- NOTE | 2018-11-22 06:38 | NUR ---
SHIFT SUMMARY PT IS RESTING IN ROOM COMFORTABLY AT THIS TIME. PT HAD NO ACUTE CHANGES IN STATUS T/O NIGHT. RESP EVEN UNLABORED ON RA W/ SATS >95%. DENIES ANY PAIN, OR SOB. PT REPORTS MUCH MORE COMFORTABLE WITH UROSTOMY DRAINAGE BAG TO ASCITIES DRAINAGE SITE. PT REPORTS HE FEELS BETTER W/O THE CONINUTED WET DRESSING ON HIS SKIN. PT HAS HAD SIGNIFICANT OUTPUT FROM THE DRAIN SITE THIS SHIFT, SEE NOTES. CALL LIGHT IS IN REACH.
--- NOTE | 2018-11-22 08:58 | NUR ---
pt laying in bed talking on the phone, a/ox3, pleasant and cooperative with care, follows commands well, states pain is ok at this time, lungs are clear t/o, resp even and unlabored, no cough noted, hrr, 2+ edema noted to b/l le, ppp+2, cap refill <3sec, vs stable, afebrile, iv site is power glide to laci site is clear and patent, btx4, abd flat soft tender, has midline incision with dressing in place, no drainage noted, has a drain hole on left lower quad with ostomy bag in place to catch drainage, voids without diff, urine is clear kalyan, skin c/w/d, except surgical incisions as noted, maew, is weak, but improving, braydon, call light in reach. swallows po meds without diff, call light in reach.
--- NOTE | 2018-11-22 13:30 | NUR ---
PT RESTING IN BED, MOM IN ROOM. NO COMPLAINTS SAYS NO PAIN, JUST VERY TIRED AND WEAK. NO NEEDS AT THIS TIME. CALL LIGHT IN REACH.
--- NOTE | 2018-11-22 18:40 | NUR ---
CHANGED DRESSING TO MID ABD WITH WET TO DRY. SOME OOZING NOTED TO OLD DRESSING BUT NOT COMING THROUGH. PT DENIES PAIN ALL DAY. NO COMPLAINTS OR NEEDS. CALL LIGHT IN REACH. MOM IN ROOM.
--- NOTE | 2018-11-22 19:30 | NUR ---
ASSUMED CARE PT SLEEPING IN ROOM COMFORTABLY AT THIS TIME. PE DAY SHIFT RN PT HAD NO ACUTE CHANGES IN STATUS T/O DAY. PT CONTINUES TO FEEL TIRED BUT REPORTS STRENGTH IS IMPROVING. PT CONTINUES TO HAVE PLEASENT AFFECT AND POSITIVE ATTITUDE. REPS EVEN UNLABORED ON RA SATS >95%. DENIES PAIN. REPORTS CONTINUED SERIOUS DRAINAGE TO L ABD SITE INTO UROSTOMY BAG. SITE INSPECTED, AND WNL. PER DAY SHIFT RN DRESSING TO MIDLINE ABD SITE CHANGED W/ WET TO DRY. SITE WNL. CALL LIGHT IS IN REACH.
[2018-11-23 06:15] LABS: Anion Gap 8 mmol/L (6-16); Blood Urea Nitrogen 27 mg/dL (8-24); Bun/Creatinine Ratio 22.5 (12.0-20.0); CO2, Blood 14 mmol/L (21-32); Chloride, Blood 113 mmol/L (98-108); Free Thyroxine 1.07 ng/dL (0.70-1.60); Glomerular Filtration Rate >60 (60-); Glucose, Blood 169 mg/dL (70-99); Potassium, Blood 3.9 mmol/L (3.5-5.5); Sodium, Blood 135 mmol/L (136-145)
--- NOTE | 2018-11-23 06:48 | NUR ---
SHIFT SUMMARY PT RESTING IN ROOM COMFORTABLY AT THIS TIME. NO ACUTE CHANGES IN STATUS OVERNIGHT. PT SLEPT WELL. DRAINAGE BAG TO ABD EMPTIED TWICE T/O NIGHT. SEE I/O NOTES. DRESSING ON MIDLINE ABD INCISION CHANGED, WET TO DRY. INCISION SITE LOOKS WNL, PINK SKIN NO REDNESS OR IRRATATION NOTED. RESP EVEN UNLABORED ON RA SATS > 95%. DENIES PAIN. CALL LIT IN REACH.
[2018-11-23 12:41] LABS: Hematocrit 21.4 % (37.0-53.0); Hemoglobin 6.6 g/dL (13.5-17.5)
--- NOTE | 2018-11-23 16:03 | NUR ---
FIRST UNIT PRBCS INFUSING
--- NOTE | 2018-11-23 19:32 | NUR ---
11/23/181931 Tarun Schaefer 3-LEAD EKG REVIEWED WITH PHYSICIAN PRIOR TO START OF PROCEDURE.PATIENT CONFIRMS NPO STATUS AND AGREES WITH SCHEDULED PROCEDURE.History, Chart, Medications and Allergies reviewed before start of procedure. MONITOR INTACT WITH CONTINUOUS PULSE OXIMETRY AND INTERMITTENT BP. O2 VIA N/C INTACT THROUGHOUT SEDATION/PROCEDURE. Bite Block Placed
--- NOTE | 2018-11-23 19:42 | NUR ---
SHIFT SUMMARY: BOWEL MOVEMENT THIS AM WITH CLEAR RED FLUID. CAPTURED SECOND BM IN HAT AT APPROX 11:45, THIS TIME CONSISTING OF MOSTLY WHAT APPEARED TO BE CLOTTED BLOOD. CALL PLACED TO DR HIDALGO, RECEIVED NEW ORDER FOR STAT H & H, DRAWN. DR HIDALGO IN TO SEE PT AND WROTE ORDERS FOR PT TO RECEIVE 2 UNITS [facility] AND HE PLACED A CONSULT TO DR HENRIQUEZ. PT RECEIVED 1 UNIT THIS SHIFT, UNIT COMPLETED AND DAYSURGERY ARRIVED TO SENIOR ENERGY ANALYST PT FOR ENDOSCOPY. REPORT GIVEN TO SOCORRO SAUNDERS. PT TO RECEIVE ABX AND 2ND UNIT WHEN BACK FROM SCOPE.
--- NOTE | 2018-11-23 20:33 | NUR ---
CARE ASSUMPTION PT BROUGHT BACK TO PCU RM 10 @ APPROX 2009 FROM PROCEDURE. PT A&O X4. REPORT FROM DAY SURGERY RN THAT PT HAD 5 BANDS PLACED. VSS. LUNG SOUNDS CLEAR. SPO2 > 92% ON RA. WILL CONTINUE TO MONITOR AND PROVIDE CARE.
[2018-11-24 02:33] LABS: Albumin, Blood 1.9 g/dL (3.4-5.0); Albumin/Globulin Ratio 0.5 (0.8-1.8); Bilirubin, Total 3.4 mg/dL (0.1-1.0); Bun/Creatinine Ratio 23.7 (12.0-20.0); Calcium, Blood 7.1 mg/dL (8.5-10.1); Creatinine, Blood 1.69 mg/dL (0.60-1.20); Globulin, Blood 3.5 g/dL (2.2-4.0); Potassium, Blood 4.4 mmol/L (3.5-5.5); Total Protein, Blood 5.4 g/dL (6.4-8.2)
[2018-11-24 02:39] LABS: Hematocrit 26.7 % (37.0-53.0); Hemoglobin 8.3 g/dL (13.5-17.5)
[2018-11-24 02:46] LABS: BASOPHILS ABSOLUTE AUTO 0.06 K/mm3 (0.00-0.23); BASOPHILS PERCENT AUTO 0 % (0-2); EOSINOPHILS ABSOLUTE AUTO 0.48 K/mm3 (0.00-0.68); EOSINOPHILS PERCENT AUTO 3 % (0-6); Hematocrit 26.5 % (37.0-53.0); Hemoglobin 8.3 g/dL (13.5-17.5); IMMATURE GRAN ABSOLUTE AUTO 0.16 K/mm3 (0.00-0.10); IMMATURE GRAN PERCENT AUTO 1 % (0-1); LYMPHOCYTES ABSOLUTE AUTO 2.39 K/mm3 (0.84-5.20); LYMPHOCYTES PERCENT AUTO 17 % (21-46); MONOCYTES ABSOLUTE AUTO 1.25 K/mm3 (0.16-1.47); MONOCYTES PERCENT AUTO 9 % (4-13); Mean Corpuscular HGB 31.7 pg (26.0-34.0); Mean Corpuscular HGB Conc 31.3 g/dL (31.5-36.5); Mean Corpuscular Volume 101 fL (80-100); Mean Platelet Volume 10.9 fL (9.1-12.4); NEUTROPHILS ABSOLUTE AUTO 10.05 K/mm3 (1.96-9.15); NEUTROPHILS PERCENT AUTO 70 % (41-73); Platelet Count 78 K/mm3 (150-400); RDW Coefficient Variation 18.9 % (11.7-14.2); RDW Standard Deviation 68.7 fL (35.1-46.3); Red Blood Cell Count 2.62 M/mm3 (4.30-5.90); White Blood Cell Count 14.39 K/mm3 (4.00-11.30)
--- NOTE | 2018-11-24 04:50 | NUR ---
SHIFT SUMMARY PT A&O X4, CALM & COOPERATIVE. MEDICAL NO TELE STATUS. I UNIT PRBC'S GIVEN THIS SHIFT AFTER PT'S SCOPE. 1 BLACK/BROWN, MEDIUM, JELLY CONSISTENCY BM THIS SHIFT. PT RECTUM TENDER. PT STATES TENDERNESS TO BE DUE TO PREVIOUS RECTAL TUBE. PT BACKSIDE PURPLE. PT ENCOURAGED TO REPOSITION SELF IN BED. PT ASSISTED W/ TURNING WELL. ABD INCISION COVERED W/ DRESSING. SEE CHART FOR PHOTOS. L LOWER DRAIN FOR ABD FLUID DRAINING CLEAR YELLOW LIQUID. SEE I/O'S FOR OUTPUT. LUNG SOUNDS CLEAR T/O. SPO2 > 92% ON RA. VSS. WILL CONTINUE TO MONITOR AND PROVIDE CARE UNTIL REPORT OFF TO DAY SHIFT RN.
--- NOTE | 2018-11-24 07:15 | NUR ---
RECEIVED REPORT FROM CHIP QUINTANILLA, AND ASSUMED CARE OF PT.
--- NOTE | 2018-11-24 07:42 | NUR ---
CALLED DR. HIDALGO FOR ADVANCE DIET ORDER. ORDERED REGULAR DIET.
--- NOTE | 2018-11-24 13:00 | NUR ---
DR. WALKER AT BEDSIDE FOR EVALUATION.
[2018-11-24 16:04] LABS: Hematocrit 25.8 % (37.0-53.0); Hemoglobin 8.2 g/dL (13.5-17.5)
--- NOTE | 2018-11-24 18:01 | NUR ---
NURSING SUMMARY ALERT AND ORIENTED X 4. NON-TELE, VSS. LUNGS CLEAR, ROOM AIR, SATS > 94%. VOIDS PER URINAL, DARK YELLOW URINE, ADEQUATE AMOUNT. BM X 2, NO BLOOD NOTED IN STOOL. OCREOTIDE INFUSING AT 50 MCG/HR = 25 ML/HR, ON PROTONIX IV. MIDLINE ABDOMINAL INCISION WITH WET-DRY DRESSING IN PLACE, CDI. LEFT ABDOMINAL DRAIN IN PLACE, DRAINING SANGUINOUS DRAINAGE, LARGE AMOUNTS THAT VARY BASED ON MOVEMENT. TOLERATING A REGULAR DIET, POOR APPETITE. DENIES PAIN THAT REQUIRES PAIN MEDICATION. AMBULATES WITH WALKER AND STANDBY ASSISTANCE TO THE BATHROOM. LEFT WRIST 20G INFUSING OCREOTIDE GTT. SIMA POWERGLIDE IN PLACE THAT DOES NOT DRAW.
[2018-11-25 03:59] LABS: BASOPHILS ABSOLUTE AUTO 0.04 K/mm3 (0.00-0.23); BASOPHILS PERCENT AUTO 0 % (0-2); EOSINOPHILS ABSOLUTE AUTO 0.39 K/mm3 (0.00-0.68); EOSINOPHILS PERCENT AUTO 4 % (0-6); Hematocrit 22.4 % (37.0-53.0); Hemoglobin 7.1 g/dL (13.5-17.5); IMMATURE GRAN ABSOLUTE AUTO 0.11 K/mm3 (0.00-0.10); IMMATURE GRAN PERCENT AUTO 1 % (0-1); LYMPHOCYTES ABSOLUTE AUTO 1.77 K/mm3 (0.84-5.20); LYMPHOCYTES PERCENT AUTO 17 % (21-46); MONOCYTES ABSOLUTE AUTO 0.93 K/mm3 (0.16-1.47); MONOCYTES PERCENT AUTO 9 % (4-13); Mean Corpuscular HGB 31.3 pg (26.0-34.0); Mean Corpuscular HGB Conc 31.7 g/dL (31.5-36.5); Mean Corpuscular Volume 99 fL (80-100); Mean Platelet Volume 10.5 fL (9.1-12.4); NEUTROPHILS PERCENT AUTO 70 % (41-73); Platelet Count 68 K/mm3 (150-400); RDW Coefficient Variation 18.9 % (11.7-14.2); Red Blood Cell Count 2.27 M/mm3 (4.30-5.90); White Blood Cell Count 10.64 K/mm3 (4.00-11.30)
[2018-11-25 04:21] LABS: Albumin, Blood 2.1 g/dL (3.4-5.0); Albumin/Globulin Ratio 0.6 (0.8-1.8); Bilirubin, Total 1.8 mg/dL (0.1-1.0); Bun/Creatinine Ratio 25.5 (12.0-20.0); Calcium, Blood 7.3 mg/dL (8.5-10.1); Creatinine, Blood 1.65 mg/dL (0.60-1.20); Globulin, Blood 3.7 g/dL (2.2-4.0); Total Protein, Blood 5.8 g/dL (6.4-8.2)
--- NOTE | 2018-11-25 05:33 | NUR ---
SHIFT SUMMARY PT MEDICAL NO TELE STATUS. A&O X4, CALM AND COOPERATIVE. LUNG SOUNDS CLEAR T/O, DIM IN BASES. SPO2 > 92% ON RA. VSS. 2 BM'S THIS SHIFT W/ REPORT OF JEWELL RED BLOOD SEEN ON TOILET PAPER WHEN PT WIPED AFTER 1 OF 2 BM'S. HGB 7.1 THIS AM. CALL TO MD DUARTE @ 5937 W/ ORDERS FOR 1 UNIT PRBC'S BE TRANSFUSED TODAY. PT ABD INCISION DRESSED W/ WET GAUZE AND DRY ABD PAD. SEE CHART FOR WOUND PHOTO. L ABD DRAIN DRAINING CLEAR YELLOW FLUID. OCTREOTIDE GTT INFUSING PER ORDERS. WILL CONTINUE TO MONITOR AND PROVIDE CARE UNTIL REPORT OFF TO DAY SHIFT RN.
--- NOTE | 2018-11-25 17:12 | NUR ---
SHIFT SUMMARY PT RESTING IN BED THROUGHOUT THE DAY. VSS. ALERT AND ORIENTED X3. 1 UNIT PRBC INFUSED TODAY, PT TOLERATED WELL. LUNG SOUNDS CLEAR, DIMINISHED BASES. ABDOMINAL DRSG CDI. LEFT ABDOMINAL SITE DRAINING SEROUS FLUID INTO DRAINAGE BAG. 1+ PITTING EDEMA TO BLE. PT AMBULATING TO BATHROOM WITH STANDBY ASSIST. UP TO RECLINER THIS AFTERNOON.
[2018-11-26 04:25] LABS: BASOPHILS ABSOLUTE AUTO 0.02 K/mm3 (0.00-0.23); BASOPHILS PERCENT AUTO 0 % (0-2); EOSINOPHILS ABSOLUTE AUTO 0.25 K/mm3 (0.00-0.68); EOSINOPHILS PERCENT AUTO 4 % (0-6); Hematocrit 23.9 % (37.0-53.0); Hemoglobin 7.6 g/dL (13.5-17.5); IMMATURE GRAN ABSOLUTE AUTO 0.07 K/mm3 (0.00-0.10); IMMATURE GRAN PERCENT AUTO 1 % (0-1); LYMPHOCYTES ABSOLUTE AUTO 1.24 K/mm3 (0.84-5.20); LYMPHOCYTES PERCENT AUTO 19 % (21-46); MONOCYTES ABSOLUTE AUTO 0.59 K/mm3 (0.16-1.47); MONOCYTES PERCENT AUTO 9 % (4-13); Mean Corpuscular HGB 31.7 pg (26.0-34.0); Mean Corpuscular HGB Conc 31.8 g/dL (31.5-36.5); Mean Corpuscular Volume 100 fL (80-100); Mean Platelet Volume 10.2 fL (9.1-12.4); NEUTROPHILS ABSOLUTE AUTO 4.41 K/mm3 (1.96-9.15); NEUTROPHILS PERCENT AUTO 67 % (41-73); Platelet Count 52 K/mm3 (150-400); RDW Coefficient Variation 18.9 % (11.7-14.2); RDW Standard Deviation 65.3 fL (35.1-46.3); White Blood Cell Count 6.58 K/mm3 (4.00-11.30)
[2018-11-26 04:42] LABS: Bun/Creatinine Ratio 26.7 (12.0-20.0); Calcium, Blood 7.5 mg/dL (8.5-10.1); Creatinine, Blood 1.35 mg/dL (0.60-1.20); Potassium, Blood 3.9 mmol/L (3.5-5.5)
--- NOTE | 2018-11-26 05:23 | NUR ---
SHIFT SUMMARY PT MEDICAL NO TELE STATUS. A&O X4, PLEASANT AND COOPERATIVE. PT EAGER TO DISCHARGE HOME. PT ABD DRESSING C/D/I. SEE CHART FOR PHOTO. L ABD DRAIN CONTINUES TO DRAIN CLEAR YELLOW FLUID T/O SHIFT. LUNG SOUNDS DIM T/O. SPO2 > 92% ON RA. PT SBA UP TO BATHROOM. NO BLOOD IN STOOL W/ BM THIS SHIFT. WILL CONTINUE TO MONITOR AND PROVIDE CARE UNTIL REPORT OFF TO DAY SHIFT RN.
[2018-11-26 12:36] LABS: Hemoglobin 7.8 g/dL (13.5-17.5)
[2018-11-26] MEDS ORDERED: Florastor250 MG PO (15:11)
[2018-11-26] MEDS ORDERED: Carafate1 GM/10 ML PO (15:11)
[2018-11-26] MEDS ORDERED: CIPR500 PO (15:12)
[2018-11-26] MEDS ORDERED: NADO20 PO (15:14)
[2018-11-26] MEDS ORDERED: PANT40 PO (15:15)
--- NOTE | 2018-11-26 17:11 | NUR ---
DISCHARGE NOTE PT STABLE FOR DISCHARGE. IV AND POWERGLIDE REMOVED. SUTURES REMOVED FROM ABDOMINAL INCISION SITES PER DOCTOR'S ORDERS. NEW DISC AND DRAINAGE BAG PLACED TO LEFT ABDOMINAL SITE FOR DRAINAGE INTTO LEG BAG. DISCHARGE INSTRUCTIONS REVIEWED WITH PT AND FAMILY. PT AND FAMILY VERBALIZE UNDERSTANDING AND DENY QUESTIONS. PT DISCHARGED WITH BELONGINGS TO HOME WITH HOME HEALTH.
== END 2018-11-26 17:03 | disposition home health service (06) | DRG 871 ==
LOC: ER 01:25 → ICUW 05:00 → ER 05:00 → PCU 05:01 → ICUE 05:01 → ICUW 05:01 → ICUE 05:20 → PCU 11-17 13:05
PROVIDERS: Emergency Medicine; Family Medicine; Internal Medicine; Internal Medicine Pulmonary Disease; Student in an Organized Health Care Education/Training Program; ADMIT Internal Medicine
PROC: 30233N1 Transfusion of Nonautologous Red Blood Cells into Peripheral Vein, Percutaneous Approach (ICD-10-PCS; principal; 2018-11-15)
PROC: 3E033XZ Introduction of Vasopressor into Peripheral Vein, Percutaneous Approach (ICD-10-PCS; 2018-11-15)
PROC: 06L38CZ Occlusion of Esophageal Vein with Extraluminal Device, Via Natural or Artificial Opening Endoscopic (ICD-10-PCS; 2018-11-23)
DX: A41.9 Sepsis, unspecified organism (principal); I85.01 Esophageal varices with bleeding; T81.12XA Postprocedural septic shock, initial encounter; K65.9 Peritonitis, unspecified; N17.9 Acute kidney failure, unspecified; K76.6 Portal hypertension; D62 Acute posthemorrhagic anemia; E87.2 Acidosis; T81.31XA Disruption of external operation (surgical) wound, not elsewhere classified, initial encounter; E87.1 Hypo-osmolality and hyponatremia; K75.81 Nonalcoholic steatohepatitis (NASH); I95.9 Hypotension, unspecified; E86.0 Dehydration; K74.60 Unspecified cirrhosis of liver; E88.09 Other disorders of plasma-protein metabolism, not elsewhere classified; N18.3 Chronic kidney disease, stage 3 (moderate); R15.9 Full incontinence of feces; D69.59 Other secondary thrombocytopenia; I86.4 Gastric varices; K52.9 Noninfective gastroenteritis and colitis, unspecified; E83.39 Other disorders of phosphorus metabolism; J10.1 Influenza due to other identified influenza virus with other respiratory manifestations; Z93.1 Gastrostomy status; E66.01 Morbid (severe) obesity due to excess calories; Z68.38 Body mass index [BMI] 38.0-38.9, adult
CPT/HCPCS: 36415; 36430; 36556; 71045; 74176; 76705; 80047; 80048; 80053; 80069; 81001; 82728; 83036; 83540; 83550; 83605; 83690; 83735; 84100; 84439; 84481; 84484; 85014; 85018; 85025; 85027; 85610; 86850; 86900; 86901; 86923; 87040; 87070; 87075; 87086; 87205; 87486; 87581; 87633; 87798; 87804; 96365-59; 96366-59; 96368; 96375-59; 97110; 97162; 97165; 97530; 97535; 99285-25; C1751; C9113; J0610; J0692; J0696; J2916; J3010; J3430; J7030; J7050; J7060; J7120; P9016; P9041; P9046

== ENCOUNTER 2018-12-20 08:21 | Day surgery (SDC) | payer OTHER ==
[~2018-12-20] VITALS: Ht 177.8 cm; Wt 116.8 kg
[~2018-12-20 08:21] MED LIST changes: +CIPR500 PO; +Carafate1 GM/10 ML PO; +Florastor250 MG PO; +NADO20 PO; +PANT40 PO
[2018-12-20] MEDS ORDERED: FURO40 (09:16)
[2018-12-20] MEDS ORDERED: SPIR50 (09:16)
--- NOTE | 2018-12-20 10:32 | NUR ---
12/20/18 Nickolas2 Jay Mak PT PROCEDURE WAS CANCELLED TODAY R/T PT'S IRREGULAR HEART RATE DURING SEDATION. DR. MORILLO WOULD LIKE PT TO GET CARDIAC CLEARANCE BEFORE PROCEEDING WITH UPPER ENDOSCOPY IN THE FUTURE. PT WOKE UP FROM SEDATION WELL. PT DENIES ANY CHEST PAIN. PT DENIES ANY DIZZINESS OR LIGHTHEADNESS. VS WNL PRIOR TO DISCHARGE. PT ALERT, AWAKE, ORIENTED. PT AMBULATED WELL TO CAR.
== END 2018-12-20 10:32 | disposition home or self-care (01) ==
LOC: ORSCSDS 08:21
PROVIDERS: Internal Medicine Gastroenterology
PROC: 0DJ08ZZ Inspection of Upper Intestinal Tract, Via Natural or Artificial Opening Endoscopic (ICD-10-PCS; principal; 2018-12-20 09:45)
DX: I85.00 Esophageal varices without bleeding (principal); K74.60 Unspecified cirrhosis of liver; E66.9 Obesity, unspecified; Z68.37 Body mass index [BMI] 37.0-37.9, adult; Z79.899 Other long term (current) drug therapy
CPT/HCPCS: J2704; J7120

== ENCOUNTER 2018-12-25 12:00 | Day surgery (SDC) | payer OTHER ==
[~2018-12-25 12:00] MED LIST changes: +FURO40; +SPIR50
== END 2018-12-25 22:51 | disposition home or self-care (01) ==
LOC: WOUND 12:00
DX: T81.89XA Other complications of procedures, not elsewhere classified, initial encounter (principal); R18.8 Other ascites; Z90.49 Acquired absence of other specified parts of digestive tract; Z88.0 Allergy status to penicillin; Z88.1 Allergy status to other antibiotic agents
CPT/HCPCS: G0463

== ENCOUNTER 2019-01-17 10:48 | Day surgery (SDC) | payer OTHER | END 2019-01-17 23:22 | disposition home or self-care (01) | LOC: US 10:48 | DX: K74.60 Unspecified cirrhosis of liver (principal); R18.8 Other ascites | CPT/HCPCS: 49083 ==

== ENCOUNTER 2019-01-28 13:46 | Day surgery (SDC) | payer OTHER | END 2019-01-28 22:53 | disposition home or self-care (01) | LOC: US 13:46 | DX: K74.60 Unspecified cirrhosis of liver (principal); R18.8 Other ascites; G47.00 Insomnia, unspecified | CPT/HCPCS: 49083 ==

== ENCOUNTER 2019-02-08 13:48 | Day surgery (SDC) | payer OTHER ==
[2019-05-16] MEDS ORDERED: FURO20 PO (11:00)
[2019-05-16] MEDS ORDERED: Aldactone100 MG PO (11:00)
== END 2019-02-08 17:24 | disposition home or self-care (01) ==
LOC: US 13:48 → ATC 13:48 → US 14:00 → ATC 17:24
DX: K74.60 Unspecified cirrhosis of liver (principal); R18.8 Other ascites
CPT/HCPCS: 49083; 96365; P9046

== ENCOUNTER 2019-02-14 00:27 | Day surgery (SDC) | payer OTHER ==
[2019-05-16] MEDS ORDERED: Aldactone100 MG PO (11:00)
[2019-05-16] MEDS ORDERED: FURO20 PO (11:00)
== END 2019-02-14 22:54 | disposition home or self-care (01) ==
LOC: US 00:27 → ATC 00:27 → LAB 00:27 → US 09:00 → ATC 22:54 → US 02-18 10:00
DX: K74.60 Unspecified cirrhosis of liver (principal); R18.8 Other ascites; E55.9 Vitamin D deficiency, unspecified
CPT/HCPCS: 36415; 49083; 82306

== ENCOUNTER 2019-02-22 09:59 | Day surgery (SDC) | payer OTHER ==
[2019-02-22 10:29] LABS: Albumin, Blood 2.6 g/dL (3.4-5.0); Anion Gap 7 mmol/L (6-16); Blood Urea Nitrogen 18 mg/dL (8-24); Bun/Creatinine Ratio 13.6 (12.0-20.0); CO2, Blood 22 mmol/L (21-32); Calcium, Blood 7.9 mg/dL (8.5-10.1); Chloride, Blood 111 mmol/L (98-108); Creatinine, Blood 1.32 mg/dL (0.60-1.20); Glomerular Filtration Rate >60 (60-); Glucose, Blood 105 mg/dL (70-99); Potassium, Blood 4.6 mmol/L (3.5-5.5); Sodium, Blood 140 mmol/L (136-145)
[2019-05-16] MEDS ORDERED: Aldactone100 MG PO (11:00)
[2019-05-16] MEDS ORDERED: FURO20 PO (11:00)
== END 2019-02-22 23:40 | disposition home or self-care (01) ==
LOC: US 09:59
PROVIDERS: Internal Medicine
DX: R18.8 Other ascites (principal); K74.60 Unspecified cirrhosis of liver; N17.9 Acute kidney failure, unspecified
CPT/HCPCS: 36415; 49083; 80069

== ENCOUNTER 2019-03-01 09:38 | Day surgery (SDC) | payer OTHER ==
[2019-03-01 10:08] LABS: BASOPHILS ABSOLUTE AUTO 0.05 K/mm3 (0.00-0.23); BASOPHILS PERCENT AUTO 1 % (0-2); EOSINOPHILS PERCENT AUTO 5 % (0-6); Hematocrit 32.3 % (37.0-53.0); Hemoglobin 10.3 g/dL (13.5-17.5); IMMATURE GRAN ABSOLUTE AUTO 0.05 K/mm3 (0.00-0.10); IMMATURE GRAN PERCENT AUTO 1 % (0-1); LYMPHOCYTES ABSOLUTE AUTO 1.19 K/mm3 (0.84-5.20); LYMPHOCYTES PERCENT AUTO 18 % (21-46); MONOCYTES PERCENT AUTO 9 % (4-13); Mean Corpuscular HGB 32.8 pg (26.0-34.0); Mean Corpuscular HGB Conc 31.9 g/dL (31.5-36.5); Mean Corpuscular Volume 103 fL (80-100); Mean Platelet Volume 10.3 fL (9.1-12.4); NEUTROPHILS ABSOLUTE AUTO 4.35 K/mm3 (1.96-9.15); NEUTROPHILS PERCENT AUTO 66 % (41-73); Platelet Count 89 K/mm3 (150-400); RDW Coefficient Variation 14.8 % (11.7-14.2); RDW Standard Deviation 55.7 fL (35.1-46.3); Red Blood Cell Count 3.14 M/mm3 (4.30-5.90); White Blood Cell Count 6.54 K/mm3 (4.00-11.30)
[2019-03-01 10:23] LABS: International Normalized Ratio 1.28; Prothrombin Time Results 13.3 Sec (9.7-11.5)
[2019-05-16] MEDS ORDERED: Aldactone100 MG PO (11:00)
[2019-05-16] MEDS ORDERED: FURO20 PO (11:00)
== END 2019-03-02 02:10 | disposition home or self-care (01) ==
LOC: US 09:38
PROVIDERS: Internal Medicine Gastroenterology
PROC: 0W9G3ZZ Drainage of Peritoneal Cavity, Percutaneous Approach (ICD-10-PCS; principal; 2019-03-01)
PROC: BW40ZZZ Ultrasonography of Abdomen (ICD-10-PCS; principal; 2019-03-01)
DX: R18.8 Other ascites (principal); K74.60 Unspecified cirrhosis of liver
CPT/HCPCS: 36415; 49083; 85025; 85610; 85730

== ENCOUNTER 2019-03-08 09:50 | Day surgery (SDC) | payer OTHER ==
[2019-05-16] MEDS ORDERED: Aldactone100 MG PO (11:00)
[2019-05-16] MEDS ORDERED: FURO20 PO (11:00)
== END 2019-03-09 00:17 | disposition home or self-care (01) ==
LOC: US 09:50
DX: K74.60 Unspecified cirrhosis of liver (principal); R18.8 Other ascites; K75.81 Nonalcoholic steatohepatitis (NASH); K76.6 Portal hypertension; K31.89 Other diseases of stomach and duodenum; E66.9 Obesity, unspecified; Z79.899 Other long term (current) drug therapy
CPT/HCPCS: 76705

== ENCOUNTER 2019-05-17 08:26 | Day surgery (SDC) | payer OTHER ==
[~2019-05-17] VITALS: Ht 177.8 cm; Wt 114.8 kg
[~2019-05-17 08:26] MED LIST changes: +Aldactone100 MG PO; +FURO20 PO
== END 2019-05-17 10:46 | disposition home or self-care (01) ==
LOC: ORSCSDS 08:26
PROVIDERS: Internal Medicine Gastroenterology
PROC: 0DJ08ZZ Inspection of Upper Intestinal Tract, Via Natural or Artificial Opening Endoscopic (ICD-10-PCS; principal; 2019-05-17 10:00)
DX: I85.00 Esophageal varices without bleeding (principal); K44.9 Diaphragmatic hernia without obstruction or gangrene; K76.6 Portal hypertension; I10 Essential (primary) hypertension; K31.89 Other diseases of stomach and duodenum; E66.01 Morbid (severe) obesity due to excess calories; Z68.37 Body mass index [BMI] 37.0-37.9, adult; Z79.899 Other long term (current) drug therapy
CPT/HCPCS: J2250; J2704; J7120

== ENCOUNTER 2019-11-06 06:17 | Day surgery (SDC) | payer OTHER ==
[~2019-11-06] VITALS: Ht 177.8 cm; Wt 117.0 kg
--- NOTE | 2019-11-06 07:16 | NUR ---
11/06/19 0716 Ginger Gutierrez PRE-OP TEACHING DONE, ALL QUESTIONS ANSWERED. BED IN LOWEST POSTION, CALL LIGHT WITHIN REACH. FAMILY AT BEDSIDE.
--- NOTE | 2019-11-06 09:06 | NUR ---
11/06/19 0906 TRAMAINE MARTINEZ LMA/BITE BLOCK REMOVED WITHOUT INCIDENT, PATIENT ABLE TO COUGH/CLEAR SECRETIONS. VSS ON RA. PATIENT DENIES PAIN/NAUSEA. CMS INTACT IN RUE, RADIAL PULSE PRESENT. ARM ELEVATED, ICE APPLIED.
--- NOTE | 2019-11-06 09:31 | NUR ---
11/06/19 0931 TRAMAINE MARTINEZ PATIENT UP TO CHAIR WITH SBA. PATIENT RATES PAIN 3/10- DECLINES ANY PAIN MEDICATION AT THIS TIME. ARM ELEVATED WITH ICE PACK IN PLACE. DENIES NAUSEA, TOLERATING PO INTAKE. PATIENT DOES REPORT NUMBNESS IN RIGHT HAND, BUT NOTHING THAT WAS NOT PRESENT PREOPERATIVELY. VSS ON ROOM AIR. MOTHER AT CHAIRSIDE. REPORT TO CHIP HARO.
== END 2019-11-06 10:20 | disposition home or self-care (01) ==
LOC: ORSCSDS 06:17
PROVIDERS: Orthopaedic Surgery
PROC: 01N40ZZ Release Ulnar Nerve, Open Approach (ICD-10-PCS; principal; 2019-11-06 07:30)
DX: G56.21 Lesion of ulnar nerve, right upper limb (principal); N18.9 Chronic kidney disease, unspecified; K75.81 Nonalcoholic steatohepatitis (NASH); E66.01 Morbid (severe) obesity due to excess calories; Z68.37 Body mass index [BMI] 37.0-37.9, adult; Z79.899 Other long term (current) drug therapy
CPT/HCPCS: J0171; J0690; J1100; J2250; J2405; J2704; J3010; J7120

== ENCOUNTER 2020-03-26 12:10 | Observation (INO) | payer OTHER ==
[~2020-03-26] VITALS: Ht 177.8 cm; Wt 83.4 kg
[~2020-03-26 12:10] MED LIST changes: -Aldactone100 MG PO; -FURO20 PO
[2020-03-26 13:06] LABS: BASOPHILS ABSOLUTE AUTO 0.03 K/mm3 (0.00-0.23); BASOPHILS PERCENT AUTO 0 % (0-2); EOSINOPHILS ABSOLUTE AUTO 0.05 K/mm3 (0.00-0.68); EOSINOPHILS PERCENT AUTO 1 % (0-6); Hematocrit 33.9 % (37.0-53.0); Hemoglobin 11.8 g/dL (13.5-17.5); IMMATURE GRAN PERCENT AUTO 1 % (0-1); LYMPHOCYTES ABSOLUTE AUTO 0.76 K/mm3 (0.84-5.20); LYMPHOCYTES PERCENT AUTO 9 % (21-46); MONOCYTES ABSOLUTE AUTO 0.47 K/mm3 (0.16-1.47); MONOCYTES PERCENT AUTO 5 % (4-13); Mean Corpuscular HGB 31.6 pg (26.0-34.0); Mean Corpuscular HGB Conc 34.8 g/dL (31.5-36.5); Mean Corpuscular Volume 91 fL (80-100); Mean Platelet Volume 8.7 fL (9.1-12.4); NEUTROPHILS ABSOLUTE AUTO 7.55 K/mm3 (1.96-9.15); NEUTROPHILS PERCENT AUTO 84 % (41-73); Platelet Count 131 K/mm3 (150-400); RDW Coefficient Variation 13.7 % (11.7-14.2); RDW Standard Deviation 45.6 fL (35.1-46.3); Red Blood Cell Count 3.74 M/mm3 (4.30-5.90); White Blood Cell Count 8.96 K/mm3 (4.00-11.30)
[2020-03-26 13:25] LABS: Albumin, Blood 4.1 g/dL (3.4-5.0); Albumin/Globulin Ratio 1.1 (0.8-1.8); Bilirubin, Total 1.4 mg/dL (0.1-1.0); Bun/Creatinine Ratio 21.3 (12.0-20.0); C-REACTIVE PROTEIN, EXT RANGE 0.392 mg/dL (0.000-0.300); Calcium, Blood 8.9 mg/dL (8.5-10.1); Creatinine, Blood 2.54 mg/dL (0.60-1.20); Globulin, Blood 3.6 g/dL (2.2-4.0); Potassium, Blood 4.6 mmol/L (3.5-5.5); Total Protein, Blood 7.7 g/dL (6.4-8.2)
[2020-03-26 14:03] LABS: Source, Urine Clean Catch
[2020-03-26 14:07] LABS: Blood, Urine Neg (Neg); Glucose Qualitative, Urine Neg (Neg); Ketones, Urine Neg (Neg); Leukocyte Esterase, Urine Neg (Neg); Nitrite, Urine Neg (Neg); Protein, Urine 2+ (Neg); Urobilinogen, Urine 1+ (Normal)
[2020-03-26 14:13] LABS: Appearance, Urine Clear (Clear); Bilirubin, Urine 2+ (Neg); Color, Urine Yellow (P-Yellow)
[2020-03-26 14:14] LABS: Red Blood Cells, Urine 0-2 /hpf (0-2)
[2020-03-26 14:15] LABS: Bacteria Few /hpf; Squamous Epithelial Cells Few /hpf (Few)
[2020-03-26] MEDS ORDERED: Aldactone100 MG PO (14:59)
[2020-03-26] MEDS ORDERED: FURO20 PO (15:00)
[2020-03-26] MEDS ORDERED: PRED5 PO (15:15)
[2020-03-26] MEDS ORDERED: TACR1 PO (15:15)
[2020-03-26] MEDS ORDERED: VALGANCICLOVIR450 M1 PO (15:16)
[2020-03-26] MEDS ORDERED: OMEP20ER PO (15:16)
[2020-03-26] MEDS ORDERED: AZAT50 PO (15:16)
[2020-03-26] MEDS ORDERED: HUMULIN N100 UNIT/3 SC (15:17)
[2020-03-26] MEDS ORDERED: MULTI-VITAMIN1 EAC2 PO (15:18)
[2020-03-26] MEDS ORDERED: HUMALOG100 UNIT/1 SC (15:18)
[2020-03-26] MEDS ORDERED: ASPI325EC PO (15:18)
--- NOTE | 2020-03-26 18:43 | NUR ---
SHIFT SUMMARY: ASSUMED CARE OF PATIENT UPON HIS ARRIVAL FROM ED AT 1721. A&O X 4, PLEASANT, KNOWLEDGABLE ABOUT HIS HEALTH AND MEDICATIONS. C/O CRAMPING ABD PAIN, DECLINED OFFERED PAIN MEDS. ABD IS TTP, BS ACTIVE X 4, IS PASSING FLATUS. DENIED N/V AT THIS TIME, IS TOLERATING LIQUIDS. IS AWARE OF NEED FOR STOOL SPECIMEN AND WILL USE URINAL TO TRACK UO. IS INDEPENDENT IN ROOM.
[2020-03-27 05:02] LABS: Campylobacter Sp Not Detected (NOT DETECT); Enteroaggregative E. coli-EAEC Not Detected (NOT DETECT); Plesiomonas Shigelloides Not Detected (NOT DETECT); Salmonella Sp Not Detected (NOT DETECT); Vibrio Cholerae Not Detected (NOT DETECT); Vibrio Sp Not Detected (NOT DETECT); Yersinia Enterocolitica Not Detected (NOT DETECT)
[2020-03-27 05:03] LABS: Adenovirus F 40/41 Not Detected (NOT DETECT); Astrovirus Not Detected (NOT DETECT); Cryptosporidium Not Detected (NOT DETECT); Cyclospora Cayetanensis Not Detected (NOT DETECT); E. Coli O157 Not Detected (NOT DETECT); Entamoeba Histolytica Not Detected (NOT DETECT); Enteropathogenic E. coli-EPEC Not Detected (NOT DETECT); Enterotoxigenic E. coli-ETEC Detected (NOT DETECT); Giardia Lamblia Not Detected (NOT DETECT); Norovirus GI/GII Not Detected (NOT DETECT); Rotavirus A Not Detected (NOT DETECT); Sapovirus Not Detected (NOT DETECT); Shiga Toxin-prod E. coli-STEC Not Detected (NOT DETECT); Shigella/Enteroin E. coli-EIEC Not Detected (NOT DETECT)
[2020-03-27 05:37] LABS: Hematocrit 27.3 % (37.0-53.0); Hemoglobin 9.4 g/dL (13.5-17.5); Mean Corpuscular HGB 31.4 pg (26.0-34.0); Mean Corpuscular HGB Conc 34.4 g/dL (31.5-36.5); Mean Corpuscular Volume 91 fL (80-100); Platelet Count 106 K/mm3 (150-400); RDW Coefficient Variation 13.7 % (11.7-14.2); RDW Standard Deviation 45.9 fL (35.1-46.3); Red Blood Cell Count 2.99 M/mm3 (4.30-5.90); White Blood Cell Count 6.25 K/mm3 (4.00-11.30)
[2020-03-27 06:04] LABS: Albumin, Blood 3.2 g/dL (3.4-5.0); Albumin/Globulin Ratio 1.1 (0.8-1.8); Bilirubin, Total 0.9 mg/dL (0.1-1.0); Calcium, Blood 8.3 mg/dL (8.5-10.1); Creatinine, Blood 1.96 mg/dL (0.60-1.20); Globulin, Blood 2.8 g/dL (2.2-4.0); Potassium, Blood 4.4 mmol/L (3.5-5.5)
--- NOTE | 2020-03-27 07:51 | NUR ---
03/27/20 0500 PT AWAKENED FOR LABWORK AND DENIES ANY FURTHER STOOLS. STATES HE HAS OCC. "CRAMPING" IN ABDOEMN BUT NOT NEEDING MEDICATION. VITALS STABLE. UNEVENTFUL NIGHT.
--- NOTE | 2020-03-27 14:15 | NUR ---
NO COMPLAINTS OF PAIN AT THIS TIME. PATIENT REPORTS HIS STOOL BEING YELLOWISH IN COLOR, SOFT UNFORMED. THE PATIENT'S MOTHER WAS AT THE BEDSIDE THIS AFTERNOON.
--- NOTE | 2020-03-27 17:19 | NUR ---
PATIENT IS ALERT AND ORIENTED AND COOPERATIVE WITH CARE. NO COMPLAINTS OF PAIN THIS SHIFT. HE HAS HAD A BM TODAY. HE IS INDEPENDENT IN HIS ROOM. HIS MOTHER IS AT THE BEDSIDE. WILL CONTINUE TO MONITOR
--- NOTE | 2020-03-28 04:32 | NUR ---
SHIFT SUMMARY PT HAS HAD NO ACUTE CHANGES THIS SHIFT, C/O CRAMPING ABD PAIN, HEAT PAD NOT EFFECTIVE, REC ORDER FOR SIMETHACONE- AFTER ADMIN PT SLEPT T/O MOST OF SHIFT & IS SLEEPING AT THIS TIME, CALL LIGHT IN REACH, WILL CONT TO MONITOR UNTIL REPORT GIVEN TO DAY RN.
[2020-03-28 05:35] LABS: BASOPHILS ABSOLUTE AUTO 0.04 K/mm3 (0.00-0.23); BASOPHILS PERCENT AUTO 1 % (0-2); EOSINOPHILS ABSOLUTE AUTO 0.05 K/mm3 (0.00-0.68); EOSINOPHILS PERCENT AUTO 1 % (0-6); Hematocrit 29.4 % (37.0-53.0); Hemoglobin 10.2 g/dL (13.5-17.5); IMMATURE GRAN ABSOLUTE AUTO 0.05 K/mm3 (0.00-0.10); IMMATURE GRAN PERCENT AUTO 1 % (0-1); LYMPHOCYTES ABSOLUTE AUTO 1.15 K/mm3 (0.84-5.20); LYMPHOCYTES PERCENT AUTO 19 % (21-46); MONOCYTES PERCENT AUTO 5 % (4-13); Mean Corpuscular HGB 31.6 pg (26.0-34.0); Mean Corpuscular HGB Conc 34.7 g/dL (31.5-36.5); Mean Corpuscular Volume 91 fL (80-100); Mean Platelet Volume 9.1 fL (9.1-12.4); NEUTROPHILS ABSOLUTE AUTO 4.44 K/mm3 (1.96-9.15); NEUTROPHILS PERCENT AUTO 74 % (41-73); Platelet Count 112 K/mm3 (150-400); RDW Coefficient Variation 13.5 % (11.7-14.2); RDW Standard Deviation 44.5 fL (35.1-46.3); Red Blood Cell Count 3.23 M/mm3 (4.30-5.90); White Blood Cell Count 6.03 K/mm3 (4.00-11.30)
[2020-03-28 06:06] LABS: Albumin, Blood 3.5 g/dL (3.4-5.0); Anion Gap 7 mmol/L (6-16); Blood Urea Nitrogen 37 mg/dL (8-24); Bun/Creatinine Ratio 22.4 (12.0-20.0); CO2, Blood 21 mmol/L (21-32); Calcium, Blood 8.7 mg/dL (8.5-10.1); Chloride, Blood 111 mmol/L (98-108); Creatinine, Blood 1.65 mg/dL (0.60-1.20); Glomerular Filtration Rate 47 (60-); Glucose, Blood 90 mg/dL (70-99); Magnesium, Blood 1.5 mg/dL (1.6-2.4); Phosphorus, Blood 3.4 mg/dL (2.5-4.9); Potassium, Blood 4.7 mmol/L (3.5-5.5); Sodium, Blood 139 mmol/L (136-145)
[2020-03-28] MEDS ORDERED: ACET325 PO (12:13)
[2020-03-28] MEDS ORDERED: PROBIOTIC PO (12:14)
[2020-03-28] MEDS ORDERED: GI COCKTAIL PO (12:21)
[2020-03-28] MEDS ORDERED: HYDR1TAB94 PO (12:22)
[2020-03-28] MEDS ORDERED: LEVO750 PO (12:23)
[2020-03-28] MEDS ORDERED: METR500 PO (12:23)
[2020-03-28] MEDS ORDERED: ONDA4ODT MM (12:23)
--- NOTE | 2020-03-28 12:35 | NUR ---
DISCHARGE PT STATE SHARP GAS PAINS THIS AM, PRN SIMETHICON GIVEN, HE STATE ADEQUATE RELIEF. STATE DIARRHEA HAS IMPROVED. PT DECLINES TO ADV DIET @ THIS TIME, CONTINUES FULL LIQUID. DR DUARTE IN TO SEE HIM, REVIEW TX, STATE OK TO GO HOME TODAY, PT STATE FEE.S READY FOR D/C. ORDER IV MAG PRIOR TO D/C, INFUSING @ THIS TIME. D/C INSTRUCT PROVIDED. MOTHER HERE FOR TRANSPORT HOME WHEN IV FINISHED. PT IS PLEASANT/APPRECIATIVE.
--- NOTE | 2020-03-28 13:34 | NUR ---
MAG RABIA HERNADEZ. IV D/C INTACT. PT PROVIDED W/C ESCORT FROM HOSP.
== END 2020-03-28 13:45 | disposition home or self-care (01) ==
LOC: ER 12:10 → MEDS 12:11
PROVIDERS: Emergency Medicine; ADMIT Internal Medicine
DX: A04.1 Enterotoxigenic Escherichia coli infection (principal); E86.0 Dehydration; E83.42 Hypomagnesemia; N18.2 Chronic kidney disease, stage 2 (mild); N17.9 Acute kidney failure, unspecified; Z94.4 Liver transplant status; Z88.0 Allergy status to penicillin
CPT/HCPCS: 0097U; 36415; 74176; 80053; 80069; 80197; 81001; 82947; 83605; 83735; 84145; 85025; 85027; 85651; 86140; 87015; 87040; 87045; 87046; 87205; 87899; 89055; 93005; 93010; 96361; 96365; 96366; 96367; 96376; 99285-25; A9270-GY; G0378; J0744; J1644; J3475; J7050; J7120; J7500; J7507; J7512

== ENCOUNTER 2020-03-31 08:40 | Inpatient (IN) | payer MEDICARE, OTHER ==
[~2020-03-31] VITALS: Ht 177.8 cm; Wt 79.4 kg
[~2020-03-31 08:40] MED LIST changes: +ACET325 PO; +ASPI325EC PO; +AZAT50 PO; +Aldactone100 MG PO; +FURO20 PO; +GI COCKTAIL PO; +HUMALOG100 UNIT/1 SC; +HUMULIN N100 UNIT/3 SC; +HYDR1TAB94 PO; +LEVO750 PO; +METR500 PO; +MULTI-VITAMIN1 EAC2 PO; +OMEP20ER PO; +ONDA4ODT MM; +PRED5 PO; +PROBIOTIC PO; +TACR1 PO; +VALGANCICLOVIR450 M1 PO
[2020-03-31 10:49] LABS: Source, Urine Clean Catch
[2020-03-31 10:50] LABS: BASOPHILS ABSOLUTE AUTO 0.04 K/mm3 (0.00-0.23); BASOPHILS PERCENT AUTO 0 % (0-2); EOSINOPHILS ABSOLUTE AUTO 0.09 K/mm3 (0.00-0.68); EOSINOPHILS PERCENT AUTO 1 % (0-6); Hematocrit 39.2 % (37.0-53.0); Hemoglobin 13.5 g/dL (13.5-17.5); IMMATURE GRAN ABSOLUTE AUTO 0.12 K/mm3 (0.00-0.10); IMMATURE GRAN PERCENT AUTO 1 % (0-1); LYMPHOCYTES ABSOLUTE AUTO 1.47 K/mm3 (0.84-5.20); LYMPHOCYTES PERCENT AUTO 10 % (21-46); MONOCYTES ABSOLUTE AUTO 0.77 K/mm3 (0.16-1.47); MONOCYTES PERCENT AUTO 5 % (4-13); Mean Corpuscular HGB 31.1 pg (26.0-34.0); Mean Corpuscular HGB Conc 34.4 g/dL (31.5-36.5); Mean Corpuscular Volume 90 fL (80-100); Mean Platelet Volume 9.1 fL (9.1-12.4); NEUTROPHILS ABSOLUTE AUTO 12.78 K/mm3 (1.96-9.15); NEUTROPHILS PERCENT AUTO 84 % (41-73); Platelet Count 186 K/mm3 (150-400); RDW Coefficient Variation 13.4 % (11.7-14.2); RDW Standard Deviation 43.3 fL (35.1-46.3); Red Blood Cell Count 4.34 M/mm3 (4.30-5.90); White Blood Cell Count 15.27 K/mm3 (4.00-11.30)
[2020-03-31 10:58] LABS: Appearance, Urine Clear (Clear); Blood, Urine 2+ (Neg); Color, Urine Amber (P-Yellow); Glucose Qualitative, Urine Neg (Neg); Ketones, Urine 1+ (Neg); Leukocyte Esterase, Urine 2+ (Neg); Nitrite, Urine Pos (Neg); Protein, Urine 2+ (Neg); Urobilinogen, Urine 1+ (Normal)
[2020-03-31 11:07] LABS: Albumin, Blood 4.8 g/dL (3.4-5.0); Albumin/Globulin Ratio 1.3 (0.8-1.8); Bilirubin, Total 1.2 mg/dL (0.1-1.0); Bun/Creatinine Ratio 9.5 (12.0-20.0); Calcium, Blood 9.7 mg/dL (8.5-10.1); Creatinine, Blood 5.05 mg/dL (0.60-1.20); Globulin, Blood 3.6 g/dL (2.2-4.0); Potassium, Blood 4.6 mmol/L (3.5-5.5); Total Protein, Blood 8.4 g/dL (6.4-8.2)
[2020-03-31 11:22] LABS: Bilirubin, Urine 1+ (Neg)
[2020-03-31 11:26] LABS: Hyaline Casts 25-50 /lpf (0-2)
[2020-03-31 11:27] LABS: Bacteria Many /hpf; Red Blood Cells, Urine 0-2 /hpf (0-2); Squamous Epithelial Cells Mod /hpf (Few)
[2020-03-31 11:49] LABS: Calcium Oxalate Crystals Mod /hpf
[2020-03-31 15:25] LABS: Albumin, Blood 4.3 g/dL (3.4-5.0); Anion Gap 11 mmol/L (6-16); Blood Urea Nitrogen 48 mg/dL (8-24); Bun/Creatinine Ratio 9.4 (12.0-20.0); CO2, Blood 22 mmol/L (21-32); Chloride, Blood 102 mmol/L (98-108); Creatinine, Blood 5.11 mg/dL (0.60-1.20); Glomerular Filtration Rate 13 (60-); Glucose, Blood 176 mg/dL (70-99); Phosphorus, Blood 4.7 mg/dL (2.5-4.9); Potassium, Blood 4.5 mmol/L (3.5-5.5); Sodium, Blood 135 mmol/L (136-145)
[2020-03-31 17:12] LABS: Source, Urine Clean Catch
[2020-03-31 17:26] LABS: Appearance, Urine Clear (Clear); Blood, Urine 1+ (Neg); Color, Urine Amber (P-Yellow); Glucose Qualitative, Urine Neg (Neg); Ketones, Urine 2+ (Neg); Leukocyte Esterase, Urine 2+ (Neg); Nitrite, Urine Pos (Neg); Protein, Urine 2+ (Neg); Urobilinogen, Urine 1+ (Normal)
[2020-03-31 18:20] LABS: Bilirubin, Urine 1+ (Neg)
[2020-03-31 18:21] LABS: Hyaline Casts 25-50 /lpf (0-2)
[2020-03-31 18:23] LABS: Red Blood Cells, Urine 0-2 /hpf (0-2); Squamous Epithelial Cells Mod /hpf (Few)
[2020-03-31 18:24] LABS: Bacteria Mod /hpf; Calcium Oxalate Crystals Mod /hpf
--- NOTE | 2020-04-01 02:38 | NUR ---
[facility] TREY FROM [facility] CALLED STATING SHE MIGHT HAVE A BED FOR PT.
--- NOTE | 2020-04-01 04:16 | NUR ---
SHIFT SUMMARY AND DISCHARGE NOTICE ASSUMED CARE OF PT AT 1900. PT IS A/OX4, INDEPENDENT IN ROOM. HEART SOUNDS REGULAR, TELE SHOWS SINUS TACH @ 80-90 BUT WOULD CREEP UP INTO THE 130S, DENIES CP. LUNG SOUNDS CLEAR, DENIES SOB. PT HAS ONLY URINATED 20CC THIS SHIFT, URINE IS DARK. PT HAS NOT HAD BM SINCE MONDAY, GIVEN MIRALAX, SENNA, COLACE, AND SUPPOSITORY WITHOUT RELEIF. PT VOMITED 1000CC OF EMESIS T/O THE SHIFT, WAS DARK GREEN. MEDICATED WITH REGALAN AND FENTYNAL. AT 030, WAS NOTIFIED PT WAS POSSIBLE TRANSFER. GAVE REPORT TO NURSE MORSE IN [place] @ 0400. EMS ARRIVED FOR PT AND LEFT WITH PT AT 0415.
== END 2020-04-01 04:11 | disposition short-term general hospital (02) | DRG 682 ==
LOC: ER 08:40 → MEDS 13:55
PROVIDERS: Internal Medicine; Nurse Practitioner Acute Care; Physician Assistant; ADMIT Family Medicine
DX: N17.9 Acute kidney failure, unspecified (principal); R65.11 Systemic inflammatory response syndrome (SIRS) of non-infectious origin with acute organ dysfunction; Z94.4 Liver transplant status; K76.6 Portal hypertension; I85.10 Secondary esophageal varices without bleeding; A04.4 Other intestinal Escherichia coli infections; N39.0 Urinary tract infection, site not specified; Z79.82 Long term (current) use of aspirin; E86.0 Dehydration; Z79.4 Long term (current) use of insulin; E09.9 Drug or chemical induced diabetes mellitus without complications; K21.9 Gastro-esophageal reflux disease without esophagitis; I95.9 Hypotension, unspecified; N18.9 Chronic kidney disease, unspecified
CPT/HCPCS: 36415; 76770; 80053; 80069; 80197; 81001; 82550; 82947; 83605; 83690; 83735; 84100; 85025; 87040; 87086; 99284; J2765; J3010; J7030; J7500

== ENCOUNTER 2022-01-21 08:31 | Day surgery (SDC) | payer MEDICARE, OTHER ==
[~2022-01-21] VITALS: Ht 175.3 cm; Wt 270.6 kg
== END 2022-01-21 11:00 | disposition home or self-care (01) ==
LOC: ORSCSDS 08:31
PROVIDERS: Internal Medicine Gastroenterology
PROC: 0DBP8ZX Excision of Rectum, Via Natural or Artificial Opening Endoscopic, Diagnostic (ICD-10-PCS; principal; 2022-01-21 09:45)
PROC: 0DBN8ZX Excision of Sigmoid Colon, Via Natural or Artificial Opening Endoscopic, Diagnostic (ICD-10-PCS; principal; 2022-01-21 09:45)
PROC: 0DBL8ZX Excision of Transverse Colon, Via Natural or Artificial Opening Endoscopic, Diagnostic (ICD-10-PCS; principal; 2022-01-21 09:45)
DX: Z12.11 Encounter for screening for malignant neoplasm of colon (principal); Z80.0 Family history of malignant neoplasm of digestive organs; Z94.4 Liver transplant status; K62.1 Rectal polyp; K57.30 Diverticulosis of large intestine without perforation or abscess without bleeding; K64.8 Other hemorrhoids; K74.60 Unspecified cirrhosis of liver; K75.81 Nonalcoholic steatohepatitis (NASH); K76.6 Portal hypertension; K31.89 Other diseases of stomach and duodenum; E11.22 Type 2 diabetes mellitus with diabetic chronic kidney disease; N18.9 Chronic kidney disease, unspecified; Z79.4 Long term (current) use of insulin; Z79.899 Other long term (current) drug therapy; Z79.82 Long term (current) use of aspirin; E66.01 Morbid (severe) obesity due to excess calories; Z68.41 Body mass index [BMI] 40.0-44.9, adult
CPT/HCPCS: 82947; 88305; J2704; J7120

== ENCOUNTER 2024-03-09 01:37 | Inpatient (IN) | payer OTHER ==
[2024-03-09] VITALS (22 sets, daily range): BP systolic 116–168; BP diastolic 65–109
[~2024-03-09] VITALS: Ht 175.3 cm; Wt 115.0 kg
[2024-03-09] MEDS ORDERED: INSULIN AS100 UNIT/8 SC (02:03)
[2024-03-09] MEDS ORDERED: INSULIN GL100 UNIT/2 SC (02:03)
[2024-03-09] MEDS ORDERED: Clopidogrel Bisulfate 75 MG Tab PO ONE (02:05)
[2024-03-09 02:10] LABS: BASOPHILS ABSOLUTE AUTO 0.04 K/mm3 (0.00-0.23); BASOPHILS PERCENT AUTO 0 % (0-2); EOSINOPHILS ABSOLUTE AUTO 0.08 K/mm3 (0.00-0.68); EOSINOPHILS PERCENT AUTO 1 % (0-6); Hematocrit 45.3 % (37.0-53.0); Hemoglobin 15.6 g/dL (13.5-17.5); IMMATURE GRAN ABSOLUTE AUTO 0.04 K/mm3 (0.00-0.10); IMMATURE GRAN PERCENT AUTO 0 % (0-1); LYMPHOCYTES ABSOLUTE AUTO 5.09 K/mm3 (0.84-5.20); LYMPHOCYTES PERCENT AUTO 47 % (21-46); MONOCYTES ABSOLUTE AUTO 0.65 K/mm3 (0.16-1.47); MONOCYTES PERCENT AUTO 6 % (4-13); Mean Corpuscular HGB 29.7 pg (26.0-34.0); Mean Corpuscular HGB Conc 34.4 g/dL (31.5-36.5); Mean Corpuscular Volume 86 fL (80-100); Mean Platelet Volume 9.4 fL (9.1-12.4); NEUTROPHILS ABSOLUTE AUTO 4.86 K/mm3 (1.96-9.15); NEUTROPHILS PERCENT AUTO 45 % (41-73); Platelet Count 202 K/mm3 (150-400); RDW Coefficient Variation 14.4 % (11.7-14.2); RDW Standard Deviation 44.6 fL (35.1-46.3); Red Blood Cell Count 5.26 M/mm3 (4.30-5.90); White Blood Cell Count 10.76 K/mm3 (4.00-11.30)
[2024-03-09] MEDS ORDERED: Ondansetron HCl 2 MG / ML 2ML Vial IV PRN (02:15)
[2024-03-09] MEDS ORDERED: Acetaminophen 325 MG TABLET PO PRN (02:15)
[2024-03-09 02:23] LABS: Albumin, Blood 4.4 g/dL (3.4-5.0); Bilirubin, Total 1.2 mg/dL (0.1-1.0); Bun/Creatinine Ratio 18.3 (12.0-20.0); Calcium, Blood 9.4 mg/dL (8.5-10.1); Creatinine, Blood 1.64 mg/dL (0.60-1.20); Globulin, Blood 4.2 g/dL (2.2-4.0); Potassium, Blood 3.6 mmol/L (3.5-5.5); Total Protein, Blood 8.6 g/dL (6.4-8.2)
[2024-03-09 02:24] LABS: International Normalized Ratio 0.93
[2024-03-09] MEDS ORDERED: Heparin Sodium 1000 Units/ML 10ML MDV ONE (02:43)
[2024-03-09] MEDS ORDERED: Verapamil HCL 2.5 MG/ML 2ML Injection ONE (02:43)
[2024-03-09] MEDS ORDERED: NS 1,000 ML IV ONE ×2 (02:43→02:47)
[2024-03-09] MEDS ORDERED: NS 250 ML IV ONE (02:44)
[2024-03-09] MEDS ORDERED: Midazolam HCl 1MG / ML 2ML Vial ONE (02:47)
[2024-03-09] MEDS ORDERED: FentaNYL Citrate 50 MCG/ML 2 ML Injection ONE (02:47)
[2024-03-09] MEDS ORDERED: Atropine Sulfate 0.1 MG/ML 10ML SYR ONE (03:04)
[2024-03-09] MEDS ORDERED: Tirofiban HCL Monohydrate 3.75 MG/15 ML Vial ONE (03:07)
[2024-03-09] MEDS ORDERED: Labetalol HCL 5 MG/ML 4ML Injection (Single Dose) ONE (03:31)
[2024-03-09] MEDS ORDERED: Labetalol HCL 5 MG/ML 4ML Injection (Single Dose) IV PRN (03:50)
--- NOTE | 2024-03-09 05:16 | NUR ---
NEW ADMIT TO ICU 8: PT ARRIVED FROM [facility]IN[facility] LOCOMOTIVE ENGINEER @ 0350 POST ANGIOGRAM AND STENT PLACEMENT TO MID RCA. PT REPORTS 4/10 CHEST PAIN AT THIS TIME BUT STATES THIS PAIN IS MANAGABLE AT THIS TIME. PT A&O X 4, PLEASANT AND COOPERATIVE WITH CARE. PT ON RA, LUNGS CLEAR AND DENIES SOB. PT SR ON MONITOR WITH HR 80'S AND SBP 150'S. ACCESS SITE TO R. RADIAL WITH TR-BAND AND ARM-BOARD IN PLACE. BALLOON WILL BEGIN DEFLATION AT 0540; SITE LOOKS GOOD, WITHOUT HEMATOMA FORMATION OR BLEEDING AT THIS TIME. PT USING URINAL IN BED INDEPENDENTLY WITH GOOD URINE OUTPUT AT THIS TIME. HYPOACTIVE BOWEL TONES NOTED; ABD OBESE, SOFT AND NON-TENDER. PPP X 4; PIV TO LAC/RAC THAT ARE SALINE LOCKED. PT'S BROTHER, YANNICK, UPDATED BY DR TAYLOR. BED LOWERED, CALL LIGHT IN REACH.
[2024-03-09 07:02] LABS: BASOPHILS ABSOLUTE AUTO 0.01 K/mm3 (0.00-0.23); BASOPHILS PERCENT AUTO 0 % (0-2); EOSINOPHILS ABSOLUTE AUTO 0.02 K/mm3 (0.00-0.68); EOSINOPHILS PERCENT AUTO 0 % (0-6); Hematocrit 43.1 % (37.0-53.0); Hemoglobin 14.9 g/dL (13.5-17.5); IMMATURE GRAN ABSOLUTE AUTO 0.04 K/mm3 (0.00-0.10); IMMATURE GRAN PERCENT AUTO 1 % (0-1); LYMPHOCYTES PERCENT AUTO 14 % (21-46); MONOCYTES ABSOLUTE AUTO 0.32 K/mm3 (0.16-1.47); MONOCYTES PERCENT AUTO 4 % (4-13); Mean Corpuscular HGB 29.2 pg (26.0-34.0); Mean Corpuscular HGB Conc 34.6 g/dL (31.5-36.5); Mean Corpuscular Volume 85 fL (80-100); Mean Platelet Volume 9.1 fL (9.1-12.4); NEUTROPHILS ABSOLUTE AUTO 6.92 K/mm3 (1.96-9.15); NEUTROPHILS PERCENT AUTO 81 % (41-73); Platelet Count 161 K/mm3 (150-400); RDW Coefficient Variation 14.2 % (11.7-14.2); RDW Standard Deviation 43.6 fL (35.1-46.3); White Blood Cell Count 8.51 K/mm3 (4.00-11.30)
[2024-03-09] MEDS ORDERED: Insulin Regular 100 UNIT/ML 10ML Vial SC SCH (07:30)
[2024-03-09 07:33] LABS: Alanine Aminotransfer (ALT/SGP 41 U/L (12-78); Albumin, Blood 4.1 g/dL (3.4-5.0); Albumin/Globulin Ratio 1.1 (0.8-1.8); Alk Phos 73 U/L (50-136); Anion Gap 11 mmol/L (3-11); Aspartate Aminotrans (AST/SGOT 79 U/L (12-37); Bilirubin, Total 1.3 mg/dL (0.1-1.0); Blood Urea Nitrogen 26 mg/dL (8-24); Bun/Creatinine Ratio 19.5 (12.0-20.0); CHOL/HDL RATIO 4.7; CO2, Blood 21 mmol/L (21-32); Calcium, Blood 8.7 mg/dL (8.5-10.1); Chloride, Blood 107 mmol/L (98-108); Cholesterol 142 mg/dL (50-200); Creatinine, Blood 1.33 mg/dL (0.60-1.20); Globulin, Blood 3.7 g/dL (2.2-4.0); Glomerular Filtration Rate 64 (60-); Glucose, Blood 306 mg/dL (70-99); HDL Cholesterol 30 mg/dL (>39); LDL/HDL RATIO 2.1; Low Density Lipoprotein Chol 62 mg/dL (0-110); Magnesium, Blood 1.3 mg/dL (1.6-2.4); Potassium, Blood 4.3 mmol/L (3.5-5.5); Sodium, Blood 135 mmol/L (136-145); Total Protein, Blood 7.8 g/dL (6.4-8.2); Triglycerides 248 mg/dL (30-160); Very Low Density Lipoprot Chol 49 mg/dL (6-32)
[2024-03-09] MEDS ORDERED: Aspirin 81 MG Chew PO SCH ×2 (09:00)
[2024-03-09] MEDS ORDERED: Clopidogrel Bisulfate 75 MG Tab PO SCH ×2 (09:00)
[2024-03-09] MEDS ORDERED: Atorvastatin 40 MG Tab PO SCH (09:00)
[2024-03-09] MEDS ORDERED: Tacrolimus 1 MG Cap PO SCH ×2 (09:00)
[2024-03-09] MEDS ORDERED: Enoxaparin 40 MG/0.4 ML SYR SC SCH (09:00)
[2024-03-09] MEDS ORDERED: Metoprolol Succinate 25 MG TABCR PO SCH (09:00)
[2024-03-09] MEDS ORDERED: Insulin Glargine-Yfgn 100 Unit/mL 3 ML SYR SC SCH ×2 (09:00→21:00)
[2024-03-09] MEDS ORDERED: Lisinopril 5 MG Tab PO SCH (09:00)
[2024-03-09] MEDS ORDERED: Magnesium Sulf 2 GM/Water 50ML 50 ML IV ONE (09:50)
[2024-03-09] MEDS ORDERED: Labetalol HCL 100 MG TAB PO SCH (10:30)
[2024-03-09] MEDS ORDERED: Heparin Sodium,Porcine 5,000 UNIT/0.5 ML SDV SC ONE (10:35)
[2024-03-09] MEDS ORDERED: Aspirin 81 MG Chew PO ONE (10:35)
--- NOTE | 2024-03-09 12:59 | NUR ---
REASSESSMENT PT HAS BEEN RESTING IN BED THROUGHOUT THE MORNING. HE DENIES CHEST PAIN. TR BAND TO R WRIST WAS DECOMPRESSED AND REMOVED, TEGADERM AND SPLINT IN PLACE. LUNGS CLEAR, RA, SR, BP HYPERTENSIVE - DR. TAYLOR ADJUSTED MEDICATIONS. VOIDING INDEPENDENTLY. DR. TAYLOR CAME BY AND GAVE OK FOR PT TO EAT, TO BE PCU STATUS, AND FOR MAGNESIUM REPLACEMENT.
--- NOTE | 2024-03-09 13:47 | NUR ---
TRANSFER PT TRANSFERRED TO [facility] 16. REPORT GIVEN TO CHIP SIFUENTES. PT TRANSFERRED VIA WC WITH RN. ALL BELONGINGS MOVED WITH PT.
--- NOTE | 2024-03-09 13:53 | NUR ---
PT TRANSFERED FROM ICU08 TO PCU 16; REPORT RECIEVED FROM LEE ANN JIN RN. PT IS A&OX4, IND IN THE ROOM, VS STABLE, AND HE IS ABLE TO MAKE HIS NEEDS KNOWN. THE PT'S RIGHT RADIAL SITE, POST ANGIO, IS FULLY RECOVERED W/ A TEGADERM C/D/I. THERE IS SCANT BRUISING A THE SITE, BUT NO HEMATOMA OR BLEEDING. HE DENIES ANY ANGINA OR CHEST PRESSURE, BP STABLE. SP02 >90% ON RA, AND HE DENIES ANY SOB. ALL PULSES PALPABLE AND EQUAL IN STRENGTH. PERRLA. PT WAS ABLE TO GET UP TO THE BATHROOM AND HAVE ATTEMPT A BM. FLATTUS HAS BEEN PASSED, PT DOES NOT WANT ANY STOOL SOFTENERS AT THIS TIME. SEE NOTES FOR ANY UPDATES.
--- NOTE | 2024-03-09 17:12 | NUR ---
SHIFT SUMMARY PT REMAINS A&OX4, CALLS APPROPRAITELY, AND IND IN THE ROOM. HE IS ON RA W/ SP02 >95%; ON TELE THE PT HAS BEEN SR 80'S-90'S, HE DENIES ANY ANGINA OR CHEST PRESSURE. HIS RIGHT WRIST RADIAL SITE STILL HAS MINIMAL BRUISING, BUT IT HAS NOT INCREASED SINCE ARRIVING TO PCU. NO SIGNS OF HEMATOMA OR BLEEDING. NO ACUTE EVENTS SINCE ARRIVING TO THE ROOM. SEE NOTES FOR ANY UPDATES.
[2024-03-09] MEDS ORDERED: AzaTHIOprine 50 MG Tab PO SCH (21:00)
[2024-03-10 00:26] VITALS: BP 93/62
[2024-03-10 04:32] VITALS: BP 93/60
--- NOTE | 2024-03-10 04:44 | NUR ---
SHIFT SUMMARY THIS RN ASSUMED CARE OF PATIENT AT 1900. PT A&O X4. ABLE TO MAKE NEEDS KNOWN. RT RADIAL ANGIO ACCESS SITE WITH DRESSING C/D/I, UNCHANGED BRUISING. ARMBOARD IN PLACE. BP SOFT WITH SBP 90'S. MAP >65. PT DENIES CHEST PAIN/PRESSURE, DIZZINESS AND SOB. SR WITH HR 70-80'S. AFEBRILE. ON RA WITH SPO2 >92%. USING URINAL INDEPENDENTLY. BED IN LOWEST POSITION AND CALL LIGHT WITHIN REACH. THIS RN WILL REPORT TO ONCOMING DAYSHIFT RN.
[2024-03-10 07:36] VITALS: BP 101/70
--- NOTE | 2024-03-10 07:53 | NUR ---
I CALLED DR. TAYLOR ABOUT THE PT'S SOFT BLOOD PRESSURE AND CARDIAC MED'S DR. TAYLOR CUT THE PT'S LABETALOL DOSE IN HALF TO 100MG BID W/ HOLD PARAMETERS OF SBP <120. HE WANTS TO LEAVE THE LISINOPRIL THE SAME. DR. TAYLOR STATED TO HOLD THE MORNING LISINOPRIL AND LABETALOL TODAY. AROUND 1200 IF THE PT'S BP IMPROVES, HE WANTS ME TO GIVE THE 5MG LISINOPRIL. PLANS TO D/C THIS EVENING IF BP HOLDS W/ NEW MEDICATIONS.
[2024-03-10 08:17] LABS: Hematocrit 42.2 % (37.0-53.0); Hemoglobin 14.4 g/dL (13.5-17.5); Mean Corpuscular HGB 29.4 pg (26.0-34.0); Mean Corpuscular HGB Conc 34.1 g/dL (31.5-36.5); Mean Corpuscular Volume 86 fL (80-100); Mean Platelet Volume 9.2 fL (9.1-12.4); Platelet Count 178 K/mm3 (150-400); RDW Coefficient Variation 14.5 % (11.7-14.2); RDW Standard Deviation 45.1 fL (35.1-46.3); White Blood Cell Count 9.23 K/mm3 (4.00-11.30)
[2024-03-10 08:42] LABS: Bun/Creatinine Ratio 16.8 (12.0-20.0); Calcium, Blood 8.7 mg/dL (8.5-10.1); Creatinine, Blood 1.49 mg/dL (0.60-1.20); Magnesium, Blood 2.1 mg/dL (1.6-2.4); Potassium, Blood 4.2 mmol/L (3.5-5.5)
[2024-03-10] MEDS ORDERED: Labetalol HCL 100 MG TAB PO SCH (09:00)
[2024-03-10 11:17] VITALS: BP 107/64
[2024-03-10 13:47] VITALS: BP 124/87
[2024-03-10 15:17] VITALS: BP 114/79
[2024-03-10] MEDS ORDERED: ATOR40TA PO (15:43)
[2024-03-10] MEDS ORDERED: CLOP75 PO (15:43)
[2024-03-10] MEDS ORDERED: LABE100 PO (15:44)
[2024-03-10] MEDS ORDERED: LISI5 PO (15:44)
--- NOTE | 2024-03-10 16:26 | NUR ---
DISCHARGE'D AT ABOUT 1625 PT REMAINS A&OX4, VS STABLE, DENIES ANY ANGINA OR CHEST PRESSURE. HIS RIGHT RADIAL ACESS SITE HAS MINIMAL BRUISING AND THE TEGADERM IS C/D/I. NO SIGNS OF BLEEDING OR HEMATOMA. I WENT OVER DISCHARGE INSTRUCTIONS WITH THE PT AND HE WAS ABLE TO VERBALIZE UNDERSTANDING. NO FURTHER NOTES AT THIS TIME.
== END 2024-03-10 16:20 | disposition home or self-care (01) | DRG 322 ==
LOC: ER 01:37 → ICUE 01:38 → PCU 13:44
PROVIDERS: Internal Medicine; Student in an Organized Health Care Education/Training Program; ADMIT Student in an Organized Health Care Education/Training Program
PROC: 027034Z Dilation of Coronary Artery, One Artery with Drug-eluting Intraluminal Device, Percutaneous Approach (ICD-10-PCS; principal; 2024-03-09)
PROC: 02C03ZZ Extirpation of Matter from Coronary Artery, One Artery, Percutaneous Approach (ICD-10-PCS; 2024-03-09)
PROC: B2111ZZ Fluoroscopy of Multiple Coronary Arteries using Low Osmolar Contrast (ICD-10-PCS; 2024-03-09)
PROC: 4A023N7 Measurement of Cardiac Sampling and Pressure, Left Heart, Percutaneous Approach (ICD-10-PCS; 2024-03-09)
DX: I21.19 ST elevation (STEMI) myocardial infarction involving other coronary artery of inferior wall (principal); D84.9 Immunodeficiency, unspecified; Z94.4 Liver transplant status; Z79.82 Long term (current) use of aspirin; Z79.02 Long term (current) use of antithrombotics/antiplatelets; E11.22 Type 2 diabetes mellitus with diabetic chronic kidney disease; N18.31 Chronic kidney disease, stage 3a; I25.10 Atherosclerotic heart disease of native coronary artery without angina pectoris; I12.9 Hypertensive chronic kidney disease with stage 1 through stage 4 chronic kidney disease, or unspecified chronic kidney disease; K75.81 Nonalcoholic steatohepatitis (NASH); Z98.890 Other specified postprocedural states; Z88.1 Allergy status to other antibiotic agents; Z88.0 Allergy status to penicillin; Z79.4 Long term (current) use of insulin; Z79.899 Other long term (current) drug therapy; E66.9 Obesity, unspecified; K21.9 Gastro-esophageal reflux disease without esophagitis; Z90.49 Acquired absence of other specified parts of digestive tract; Z87.19 Personal history of other diseases of the digestive system; Z68.38 Body mass index [BMI] 38.0-38.9, adult
CPT/HCPCS: 36415; 76937; 80048; 80053; 80061; 82947; 83036; 83735; 84484; 85025; 85027; 85347; 85610; 92973; 93005; 93010; 93454; 94762; 99152; 99153; 99285-25; A9270; C1725; C1757; C1769; C1874; C1887; C1894; C8929; C9606; J0461; J1644; J1650; J1815; J2250; J3010; J3246; J3475; J7030; J7050; J7500; J7507; Q9957; Q9967